=== PATIENT | male | born 1940 | race Caucasian/White ===

== ENCOUNTER 2018-05-17 13:07 | Emergency (ER) | payer MEDICARE ==
[~2018-05-17] VITALS: Ht 180.3 cm; Wt 68.0 kg
[2018-05-17] MEDS ORDERED: ASPIRIN325 MG PO (15:03)
[2018-05-17] MEDS ORDERED: LIPITOR40 MG PO (15:04)
[2018-05-17] MEDS ORDERED: CITALOPRAM HBR10 MG PO (15:05)
[2018-05-17] MEDS ORDERED: DONEPEZIL HCL10 MG PO (15:05)
[2018-05-17] MEDS ORDERED: IMODIUM A-D2 M2 PO (15:07)
[2018-05-17] MEDS ORDERED: GLUCOPHAGE500 MG PO (15:11)
[2018-05-17] MEDS ORDERED: PANTOPRAZOLE SO40 MG PO (15:12)
[2018-05-17] MEDS ORDERED: PERCOCET 5-3251 EACH PO (15:13)
[2018-05-17] MEDS ORDERED: SEROQUEL50 MG PO ×2 (15:13→15:14)
[2018-05-17] MEDS ORDERED: SYMBICORT 16010.2 GM INH (15:15)
[2018-05-17] MEDS ORDERED: FLOMAX0.4 MG PO (15:15)
[2018-05-17] MEDS ORDERED: ULTRAM50 MG PO (15:15)
[2018-05-17] MEDS ORDERED: TRAZODONE HCL50 MG PO (15:16)
[2018-05-17] MEDS ORDERED: VENTOLIN HFA18 GM INH (15:20)
[2018-05-17] MEDS ORDERED: NEURONTIN300 MG PO (16:55)
--- NOTE | 2018-05-18 18:27 | EKG ---
[facility] [address] [facility] [place], [place] [address] Signed Sinus rhythm with premature supraventricular complexes Otherwise normal ECG No previous ECGs available Confirmed by ANKUR CASTELLON MD ([id number]) on 05/18/2018 6:27:12 PM Electronically Signed By: ANKUR CASTELLON MD 05/18/18 1827 PATIENT NAME: MADISYN SALMERON Electrocardiogram DATE OF : 36 PHYSICIAN: ANKUR CASTELLON MD REPORT #: [id number] REPORT IS CONFIDENTIAL AND NOT TO BE RELEASED WITHOUT AUTHORIZATION
== END 2018-05-17 17:55 | disposition home or self-care (01) ==
LOC: ED 13:07
DX: R10.9 Unspecified abdominal pain (principal); G89.4 Chronic pain syndrome; J44.9 Chronic obstructive pulmonary disease, unspecified; E11.9 Type 2 diabetes mellitus without complications; I50.9 Heart failure, unspecified; Z87.891 Personal history of nicotine dependence; Z79.82 Long term (current) use of aspirin; Z79.899 Other long term (current) drug therapy; Z79.84 Long term (current) use of oral hypoglycemic drugs; Z79.891 Long term (current) use of opiate analgesic
CPT/HCPCS: 71045; 74176; 80053; 81001; 83690; 83735; 83880; 84484; 85025; 85610; 93005; 93010; 94761; 96361; 96374; 96375; 99284; J1170; J2405; J7040

== ENCOUNTER 2018-08-17 12:08 | Inpatient (IN) | payer MEDICARE, OTHER ==
[~2018-08-17] VITALS: Ht 180.3 cm; Wt 71.8 kg
[~2018-08-17 12:08] MED LIST: ADULT ASPIRIN R81 MG PO; CITALOPRAM HBR10 MG PO; DONEPEZIL HCL10 MG PO; FLOMAX0.4 MG PO; GLUCOPHAGE500 MG PO; IMODIUM A-D2 M2 PO; LIPITOR40 MG PO; NEURONTIN300 MG PO; PANTOPRAZOLE SO40 MG PO; PERCOCET 5-3251 EACH PO; SEROQUEL50 MG PO; SYMBICORT 16010.2 GM INH; TRAZODONE HCL50 MG PO; ULTRAM50 MG PO; VENTOLIN HFA18 GM INH
--- OUTSIDE RECORDS SUMMARY | 2018-08-17 12:12 | XMS ---
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 Quique has no Care Guidelines for this patient. [place] VISIT COUNT (12 MO.) 2 NEGRA [facility] TOTAL 2 NOTE: Visits indicate total known visits. 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
--- NOTE | 2018-08-17 20:00 | NUR ---
PATIENT RESTING IN BED, TACHYPNEIC WITH NON-PRODUCTIVE COUGH. ASSISTED TO BEDSIDE COMDODE WITH 1PA, ABLE TO VOID SMALL AMOUNT OF URINE. PATIENT NOW RESTING IN BED AGAIN. REPORTS ABD DISCOMFORT, SCHEDULED TYLENOL GIVEN. DENIES FURTHER NEEDS. BLADDER SCAN DONE, 115 ML NOTED IN BLADDER, MD AWARE. CALL LIGHT WITHIN REACH, BED ALARM ON.
--- NOTE | 2018-08-17 21:11 | EKG ---
[facility] [address] [facility] [place] [address] Signed Atrial flutter with variable AV block with premature ventricular or aberrantly conducted complexes Abnormal ECG When compared with ECG of 17-AUG-2018 13:23, (Unconfirmed) ST no longer depressed in Inferior leads Confirmed by SARKIS BOTELLO DO ([id number]) on 08/17/2018 9:11:32 PM Electronically Signed By: SARKIS BOTELLO DO 08/17/182110 PATIENT NAME: MADISYN SALMERON JR Electrocardiogram DATE OF : 36 PHYSICIAN: SARKIS BOTELLO DO REPORT #: [id number] REPORT IS CONFIDENTIAL AND NOT TO BE RELEASED WITHOUT AUTHORIZATION
--- NOTE | 2018-08-17 21:11 | EKG ---
[facility] [address] [facility] [place], [place] [address] Signed Atrial flutter with 2:[address] abnormality Abnormal ECG When compared with ECG of 17-AUG-2018 12:11, (Unconfirmed) ST less depressed in Inferior leads Confirmed by SARKIS BOTELLO DO ([id number]) on 08/17/2018 9:11:14 PM Electronically Signed By: SARKIS BOTELLO DO 08/17/182110 PATIENT NAME: MADISYN SALMERON Electrocardiogram DATE OF : 36 PHYSICIAN: SARKIS BOTELLO DO REPORT #: [id number] REPORT IS CONFIDENTIAL AND NOT TO BE RELEASED WITHOUT AUTHORIZATION
--- NOTE | 2018-08-17 21:11 | EKG ---
[facility] [address] [facility] [place], [place] [address] Signed Atrial flutter with 2:[address] abnormality Abnormal QRS-T angle, consider primary T wave abnormality Abnormal ECG When compared with ECG of 17-AUG-2018 12:10, (Unconfirmed) No significant change was found Confirmed by SARKIS BOTELLO DO ([id number]) on 08/17/2018 9:11:12 PM Electronically Signed By: SARKIS BOTELLO DO 08/17/18 211 PATIENT NAME: MADISYN SALMERON Electrocardiogram DATE OF : 36 PHYSICIAN: SARKIS BOTELLO DO REPORT #: [id number] REPORT IS CONFIDENTIAL AND NOT TO BE RELEASED WITHOUT AUTHORIZATION
--- NOTE | 2018-08-17 22:17 | NUR ---
PATIENT RESTING IN BED WITH EYES CLOSED, BREATHING IS EVEN AND UNLABORED. CALL LIGHT WITHIN REACH, BED ALARM ON.
--- NOTE | 2018-08-17 23:29 | NUR ---
PATIENT RESTING WITH EYES CLOSED, BREATHING IS EVEN AND UNLABORED, RR IS 17, O2 SATURATION IS 95% ON 2L O2. FLACC SCORE OF 0. CALL LIGHT WITHIN REACH, BED ALARM ON.
--- NOTE | 2018-08-17 23:30 | NUR ---
PATIENT RESTING IN BED WITH EYES CLOSED, BREATHING IS EVEN AND UNALABORED. FLACC SCORE OF 0. ASSESSMENT DONE. PATIENT DENIES NEEDS AT THIS TIME. CALL LIGHT WITHIN REACH, BED ALARM ON.
--- NOTE | 2018-08-18 00:49 | NUR ---
UPDATED DR. BOTELLO REGARDING PATIENT'S LOW URINE OUTPUT. DR. BOTELLO STATES TO CONTINUE TO MONITOR URINE OUTPUT UNTIL MORNING, WILL RE-EVALUATE NEED FOR CATHETER IN AM.
--- NOTE | 2018-08-18 03:04 | NUR ---
PATIENT RESTING IN BED WITH EYES CLOSED, BREATHING IS EVEN NAD UNLABORED, RR IS 18, O2 SATURATION IS 100% ON 2L O2 VIA NC. FLACC SCORE OF 0. CALL LIGHT WITHIN REACH, BED ALARM ON.
--- NOTE | 2018-08-18 04:06 | NUR ---
REPORTS 8/10 PAIN IN ABD AND RADIATES TO FLANKS, PATIENT STATES "I THINK IT IS FROM ALL THE COUGHING I HAVE BEEN DOING." PRN OXYCODONE GIVEN. PATIENT ASSISTED TO BEDSIDE COMMODE, WAS ABLE TO VOID. NOW RESTING IN BED AGAIN, BREATHING IS TACHY, O2 SATURATION IS 95% ON 2L O2 VIA NC. RT IN TO DO BREATHING TREATMENT. PATIENT DENIES FURTHER NEEDS AT THIS TIME. CALL LIGHT WITHIN REACH, BED ALARM ON.
[2018-08-18] MEDS ORDERED: FERROUS GLUCON324 M1 PO (08:22)
--- NOTE | 2018-08-18 08:30 | NUR ---
IV SITE INTACT, NO REDNESS OR SWELLING NOTED, FLUIDS INFUSING EASILY. PT AWAKE AND ALERT APPEARS SLIGHTLY AGITATED, PT REPORTS 6/10 PAIN IN ABD/FLANK. 10MG PO OXYCODONE GIVEN. PT NOT ABLE TO EAT BREAKFAST, BUT DRANK AN ENSURE. PT ALERT AND ORIENTED X4, HOWEVER IS VERY FORGETFUL. PT UP TO BEDSIDE COMMODE, SLIGHTLY IMPULSIVE WHEN GETTING UP. PT DIRECTABLE AND POLITE. PT DENIES NAUSEA AND SOB AT THIS TIME, SPUTUM SAMPLE OBTAINED.
--- NOTE | 2018-08-18 09:48 | NUR ---
PT HEART RATE IN THE 140'S TO 170'S AT TIMES, NEW ORDERS RECEIVED, PT IS IN AFIB WITH RVR AND WAS GIVEN 5MG LOPRESSOR IVP AND THEN 25MG PO. PT IS UP TO THE BEDSIDE COMMODE ALSO AT THIS TIME. HE WAS C/O CHEST PAIN WITH THIS ELEVATED HEART RATE. ONCE HEART RATE DECREASED TO THE 100'S HIS CHEST PAIN WAS NONE.
--- NOTE | 2018-08-18 10:01 | NUR ---
PT CONTIOUES TO C/O CHEST PAIN, NEW ORDERS EKG TO BE COMPLETED, AND A NEW IV LINE STARTED ALSO AT THIS TIME. DR WILL COME AND SEE PT
--- NOTE | 2018-08-18 10:18 | NUR ---
Nurse deferred PT eval today due to pt. experiencing chest pain. Will re-attempt eval as mediacally appropriate.
--- NOTE | 2018-08-18 11:10 | NUR ---
BLADDER SCANNED PT FOR 400 ML PT NOT ABLE TO VOID, CALLED TO UPDATE, ORDER GIVEN FOR DELGADO CATH PLACEMENT.
[2018-08-18] MEDS ORDERED: COLACE100 MG PO (11:23)
--- NOTE | 2018-08-18 11:23 | NUR ---
MED REC COMPLETE
--- NOTE | 2018-08-18 11:32 | NUR ---
16FR DELGADO PLACED USING STERILE TECHNIQUE, PT TOLERATED WELL, SECURED. OBTAINED 400ML DARK YELLOW URINE. PT STATES HE IS COMFORTABLE. DAUGHTER HAS ARRIVED AND IS SITTING WITH PT.
--- NOTE | 2018-08-18 13:01 | NUR ---
PT IV DOCUMENTED IN THE RT FOOT IS IN THE LEFT HAND.
--- NOTE | 2018-08-18 14:50 | NUR ---
PT BACK TO BED FROM COMMODE. PT HAS DIFFICULTY REMEMBERING HIS DELGADO CATH, AND WHAT IT IS. PT IS IMPULSIVE WITH MOVEMENTS, HOWEVER IS POLITE AND COOPERATIVE.
--- NOTE | 2018-08-18 15:51 | EKG ---
[facility] [address] [facility] [place] [address] Signed Atrial fibrillation with rapid ventricular response Abnormal QRS-T angle, consider primary T wave abnormality Abnormal ECG When compared with ECG of 17-AUG-2018 14:18, Atrial fibrillation has replaced Atrial flutter Non-specific change in ST segment in Inferior leads Confirmed by SARKIS BOTELLO DO ([id number]) on 08/18/2018 3:51:37 PM Electronically Signed By: SARKIS BOTELLO DO 08/18/18 1551 PATIENT NAME: MADISYN SALMERON Electrocardiogram DATE OF : 36 PHYSICIAN: SARKIS BOTELLO DO REPORT #: [id number] REPORT IS CONFIDENTIAL AND NOT TO BE RELEASED WITHOUT AUTHORIZATION
--- NOTE | 2018-08-18 17:15 | NUR ---
FULL REPORT GIVEN BEDSIDE TO LISA WEAVER IN ROOM 121.
--- NOTE | 2018-08-18 17:19 | NUR ---
CALLED PT'S DAUGHTER TO UPDATE ABOUT PT MOVING TO MED-SURG ROOM 121.
--- NOTE | 2018-08-18 18:01 | NUR ---
PT ARRIVED ON THE UNIT IN BED FROM CCU. PT IS ANXIOUS, HARD OF HEARING, AND BLIND IN ONE EYE, POOR SIGHT IN OTHER EYE. PT IS FORGETFUL, OFTEN REPEATS HIMSELF. PT USES O2, CHRONIC AT 1.5L. DELGADO CATH IN PLACE. PT USES BSC. PT DISLIKES ANY MOISTURE ON SKIN, DOES NOT LIKE TO USE WIPES. PT LIKES TO WIPE HIMSELF. PT ON TELE, TACHY IN 90-115.
--- NOTE | 2018-08-18 20:00 | NUR ---
PATIENT RESTING PEACEFULLY ON 1.5L/NC IN BED WITH HEAD OF BED ABOUT 30 DEGREES. EYES CLOSED RESPIRATIONS EVEN AND REGULAR AND PATIENT APPEARS IN NO DISTRESS.
--- NOTE | 2018-08-18 22:30 | NUR ---
PATIENT STILL RESTING QUIETLY IN BED. RESPIRATIONS EVEN AND REGULAR AT A RATE OF 18. EYES CLOSED AND APPEARS TO BE RESTING COMFORTABLLY.
--- NOTE | 2018-08-18 23:20 | NUR ---
APPROACHED BY CHARGE NURSE PATIENT HAS AWOKEN AND IS VERY ANXIOUS, HR JUMPINGING INTO THE 160'S AND O2 HAD TO BE TURNED UP TO 6L/NC TO GET SATS UP FROM 88%, BUT PATIENT HAD PULLED HIS O2 OFF. PATIENT EXTREMELY ANXIOUS. PM MEDS HAVE BEEN GIVEN. WAS CALLED AND AN ORDER FOR 1MG IV ATIVAN WAS GIVEN. THIS CALMED PATIENT DOWN RIGHT AWAY. PATIENT'S HEART RATE AND BREATHING CAME BACK DWN INTO EXCEPTABLE PARAMETERS. IV LOPRESSOR HAD BEEN ORDER, BUT SAID TO HOLD THE DOSE SINCE THE PATIENT WAS STABLIZING, BUT TO STILL GIVE HIM HIS SEROQUEL IF HE WOKE UP. PATIENT RESTING QUEITLY NOW. SATS 95-96% ON 4L/NC.
--- NOTE | 2018-08-19 00:05 | NUR ---
PATIENT CONTINUES TO REST QUIETLY AND CAN BE SEEN FROM THE NURSES DESK.
--- NOTE | 2018-08-19 02:24 | NUR ---
VITALS AND I&OS DONE AND CHARTED. NOTIFIED LISA MANDUJANO OF LOWER OUTPUT.
--- NOTE | 2018-08-19 02:35 | NUR ---
PER RN NAZIA I BLADDER SCANNED PT FOR 6ML. I INFORMED RN
--- NOTE | 2018-08-19 03:29 | NUR ---
WAS NOTIFIED THAT PATIENT HAS HAD LOW URINE OUTPUT AND HE INFORMED NURSING TO MONITOR AND HE WOULD LOOK AT THE ISSUE AND PATIENT'S LABS IN THE MORNING.
--- NOTE | 2018-08-19 04:25 | NUR ---
PATIENT'S SATS DROPPING TO 88% ON 4L/NC. PATIENT IS MOUTH BREATHING. PATIENT PLACED ON 4L/OXYMASK AND BACK TO 95% AT THIS TIME.
--- NOTE | 2018-08-19 06:08 | NUR ---
VITALS AND I&OS DONE AND CHARTED. NOTIFIED RN NAZIA OF LOW OUTPUT. BED WEIGHT DONE AND CHARTED. GARBAGES EMPTIED. BED SIDE TABLE AND CALL LIGHT IN REACH. PT SLEEPING WHEN I LEFT THE ROOM.
--- NOTE | 2018-08-19 08:02 | NUR ---
RECIEVED BEDSIDE REPORT FROM LISA MANDUJANO. PT SLEEPING SOUNDLY, SNORING. DID NOT WAKE TO VOICES IN ROOM. PT HAD ORDER FOR 50MG SEROQUEL ONCE FROM LAST NIGHT, NOT GIVEN DUE TO PT SLEEPING. MD AWARE. CHARTED NOT GIVEN. PER MD, RESUME NORMAL SCHEDULEING TODAY. PT ON 4L O2 VIA OXYMASK.
--- NOTE | 2018-08-19 10:34 | NUR ---
RN DEFERRED PATIENT'S PHYSICAL THERAPY EVALUATION TO THIS AFTERNOON SECONDARY TO PATIENT HAD A ROUGH NIGHT WITH O2 SATURATION, MENTAL STATUS, AND CHEST PAINS. WILL RE-ATTEMPT LATER TODAY.
--- NOTE | 2018-08-19 10:39 | NUR ---
pt is resting in bed safely with call light in reach. pt did not want anything for breakfast, but did drink some water. pt did not need anything else and appears to be very sleepy, nurse aware.
--- NOTE | 2018-08-19 11:10 | NUR ---
PT SLEEPING SOUNDLY ALL MORNING. WILL WAKE FOR CARES, COOPERATIVE, NO NOTED ANXIETY. CHANGED OXYGEN TO NASAL CANULA.
--- NOTE | 2018-08-19 12:53 | NUR ---
NO IV IN RIGHT FOOT, IV IN LEFT AC AND LEFT FOREARM.
--- NOTE | 2018-08-19 12:59 | NUR ---
PT'S DAUGHTER CALLED REQUESTING UPDATE. GAVE UPDATE ON OVERNIGHT EVENTS. SHE HAS QUESTIONS ABOUT HIS HEART RATE AND CHEST PAINS THAT HAS HAPPENED PRIOR TO THIS ILLNESS. RN ANSWERED WHAT I COULD AND DIRECTED HER TO SPEAK WITH HIS PCP OR THE HOSPITALIST WHEN SHE IS AT THE HOSPITAL. DAUGHTER IS NOT FEELING WELL SO IS NOT GOING TO VISIT TODAY.
--- NOTE | 2018-08-19 13:55 | NUR ---
REPORT RECEIVED FROM LISA WEAVER. 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 APPEARS TO BE TOLERATING WELL.
--- NOTE | 2018-08-19 14:40 | NUR ---
pt is resting in bed safely with call light in reach. pt asked for an ensure. pt was offered to get up and sit in the chair, but pt said his back is hurting too much for that right now.
--- NOTE | 2018-08-19 15:07 | NUR ---
ADMINSTERED SCHEDULED MEDS. HAD TO WAKE PT TO TAKE THEM. DENIES CONCERNS. STATES HE IS IN THE HOSPITAL FOR BREATHING BUT DOESN'T KNOW THE TOWN AND ASKED WHEN THE MAIL WOULD BE DELIVERED. PT BACK TO SLEEP QUICKLY.
--- NOTE | 2018-08-19 17:49 | NUR ---
PT MOVED TO CHAIR FOR DINNER. PT HAS SOME SWELLING IN HIS RIGHT WRIST, CUT OFF BAND AND WILL REPLACE. PT DENIES PAIN OR FEELING OF SWELLING IN HIS HAND OR WRIST. STATES IT FEELS NORMAL. ADMINSITERED LIPITOR.
--- NOTE | 2018-08-19 18:31 | NUR ---
PT SLEPT OFF AND ON THROUGHOUT DAY. FREQUENT COUGH, UNPRODUCTIVE. ANVIK. TELE IRREGULAR. SS INSULIN STARTED FOR BS OF 172. PT REPORTS SOME CHRONIC BACK PAIN. DELGADO DRAINING LIGHT YELLOW QS. 4LNC. LUNG SOUND COARSE.
--- NOTE | 2018-08-19 18:49 | NUR ---
PT HAS CRACKLES IN BASES. DCD IVF PER DR PICHARDO.
--- NOTE | 2018-08-19 19:06 | NUR ---
pt was assisted from chair back to bed. pt is resting safely with call light in reach and bed alarm on. pt asked for a hot pack for his lower back.
--- NOTE | 2018-08-19 20:54 | NUR ---
VITALS DONE AND CHARTED. BLOOD SUGAR WELL. NOTIFIED RN
--- NOTE | 2018-08-19 22:23 | NUR ---
I&OS DONE AND CHARTED. NOTIFIED LISA MANDUJANO
--- NOTE | 2018-08-19 22:55 | NUR ---
INFORMED ABOUT PATIENT'S LOW URINE OUTPUT PER RN NAZIA REQUEST. NO NEW ORDERS.
--- NOTE | 2018-08-19 23:40 | NUR ---
NOTIFIED BY LISA ANDINO, OF LOW URINARY OUTPUT. NO NEW ORDERS, JUST CONTINUE TO MONITOR FOR NOW.
--- NOTE | 2018-08-20 00:17 | NUR ---
PATIENT AWAKE AND WANTED TO SIT UP. PATIENT UP IN RECLINER WITH CHAIR ALARM. PATIENT IS WHEEZING MORE AND SATS DROPPED TO 88% ON THE NC SO SWITCHED TO 4L/OXYMASK AND RT CALLED TO COME GIVE A PRN NEB.
--- NOTE | 2018-08-20 00:52 | NUR ---
PATIENT HAS HAD HIS BREATHING TREATMENT AND IS RESTING QUIETLY IN THE RECLINER NOW. WHEEZING HAS RESOLVED. SATS 97% ON 4L/OXYMASK.
--- NOTE | 2018-08-20 02:34 | NUR ---
PATIENT CONTINUES TO SIT IN THE RECLINER AND IS GETTING HUNGRY. PATIENT DRANK AN INSURE AND IS NOW EATING A TURKEY SANDWHICH. SATS 99% ON 4L/NC.
--- NOTE | 2018-08-20 02:35 | NUR ---
GAVE PT A TURKEY SAND BOX PER HIS REQUEST AND OK FROM HIS RN NAZIA. FRESH WATER GIVEN. CALL LIGHT AND BEDSIDE TABLE IN REACH.
--- NOTE | 2018-08-20 06:43 | NUR ---
VITALS AND I&OS DONE AND CHARTED. GARBAGES EMPTIED. BEDSIDE TABLE AND CALL LIGHT IN REACH. FRESH WATER GIVEN.
--- NOTE | 2018-08-20 07:08 | NUR ---
RECIEVED BEDSIDE REPORT FROM LISA MANDUJANO. PT SLEEPING SOUNDLY, TALKING INCOHERANTLY IN HIS SLEEP. O2 AT 4L VIA OXYMASK. PT APPEARS COMFORTABLE IN BED AT THIS TIME.
--- NOTE | 2018-08-20 07:54 | NUR ---
PATIENT HAD A PRETTY GOOD NIGHT EXCEPT FOR NEEDING A BREATHING TREATMENT IN THE MIDDLE OF THE NIGHT WHEN HE GOT MORE WHEEZY AND THEN AGAIN AFTER 6 AM PATIENT BECAME VERY ANXIOUS SAID HE COULDN'T BREATH, BUT SATS WERE IN THE HIGH 90'S. PATIENT WAS GIVEN A BREATHING TREATMENT AND SEEMED TO BE MOVING AIR FAIRLY WELL BUT HAVING EXTREME ANXIETY. CALLED DR. ACEVEDO AND GOT AN ORDER FOR 0.5MG IV ATIVAN AND PATIENT CALLED DOWN GOT BACK IN BED, RELAXED HEART RATE DECREASED FROM THE 140'S DOWN TO THE LOW 100'S. PATIENT ALSO HAD A LARGE BOWEEL MOVEMENT. PATIENT RESTING QUIETLY WHEN AM REPORT GIVEN.
--- NOTE | 2018-08-20 08:17 | NUR ---
PATIENT RESTING IN BED, CALL LIGHT IN REACH. RT IN ROOM. NO OTHER NEEDS AT THIS TIME.
--- NOTE | 2018-08-20 09:49 | NUR ---
PATIENT RESTING IN BED, PATIENT DOES NOT AWAKE WHEN THIS ENVIRONMENTAL MARKETER SPEAKS TO PATIENT. RN IN ROOM WITH PATIENT AT THIS TIME. CALL LIGHT IN REACH. NO OTHER NEEDS.
--- NOTE | 2018-08-20 10:13 | NUR ---
PT REMAINS VERY SLEEPY. WILL WAKE TO LOUD VOICE AND TOUCH. PT SEEMS MORE DISORIENTED TODAY THAN PREVIOUSLY. PT LUNGS ARE VERY WHEEZY AND COARSE. PER NOLAN, RT, TRIAL REDUCTION IN 02 TO KEEP SATS AT MID-90S. DECREASED O2 TO 2L NASAL CANULA. GOOD URINE OUTPUT. TELEPHONE ORDER FROM DR ACEVEDO TO CLAMP DELGADO TO ASSESS NEED TO VOID. DELGADO CLAMPED AT 1020.
--- NOTE | 2018-08-20 12:32 | NUR ---
PT UP TO CHAIR WITH PHYSICAL THERAPY. PT TOLERATED WELL, CHAIR ALARM ON. PT SEEMS MORE AWAKE, DOZES OFF, BUT WAKES TO VOICE. REPORTS APPITITE IS IMPROVING. ONE-TIME DOSE OF CATCH UP MEDS GIVEN.
--- NOTE | 2018-08-20 13:44 | NUR ---
PATIENT SITTING UP IN BEDSIDE RECLINER, CALL LIGHT IN REACH, CHAIR ALARM ON. NO OTHER NEEDS AT THIS TIME. LINENS CHANGED.
--- NOTE | 2018-08-20 13:52 | NUR ---
DELGADO WAS CLAMPED FOR 3 HRS. PT HAD 150ML OUTPUT WHEN UNCLAMPED. PT DEINED FEELING THE NEED TO VOID. THERE WAS A LARGE AMOUNT OF URINE ON BEDSHEETS WHEN PT MOVED TO CHAIR. DR ACEVEDO NOTIFIED, WILL RECOMMEND FOLLOW UP WITH UROLOGY AFTER DISCHARGE AND WE WILL LEAVE DELGADO FOR NOW.
--- NOTE | 2018-08-20 14:23 | NUR ---
PT HAS BEEN UP IN CHAIR. TOLERATING WELL. DELGADO CATH LEAKING. RN WILL REASSESS. PT LAYING BACK DOWN IN BED.
--- NOTE | 2018-08-20 15:54 | NUR ---
THIS TRICHOLOGIST ASKED PATIENT IF HE WOULD LIKE TO SHOWER. PATIENT APPEARED TO BE AGITATED AND STATED THAT HE WANTS "YOU PEOPLE TO LEAVE ME ALONE, IM SICK AND DONT FEEL GOOD AND WANT TO BE LEFT ALONE". THIS TRICHOLOGIST EXPLAINED TO PATIENT THE BENEFITS OF A SHOWER AND THAT IT MAY HELP HIM FEEL BETTER, PATIENT AGITATION INCREASED AND PATIENT STATED THAT "YOU CANT FORCE ME TO TAKE A SHOWER, IM NOT TAKING ONE." PATIENT RESTING IN BED, CALL LIGHT IN REACH. RN NOTIFIED, NO OTHER NEEDS AT THIS TIME.
--- NOTE | 2018-08-20 17:24 | NUR ---
APPROCHED PT SEVERAL TIMES RE: TAKING A SHOWER. PT EMPHATICALLY DECLINED TO GET IN THE SHOWER CITING PAIN AND FATIGUE. PT WAS GIVEN PRN TYLENOL, STILL DECLINED. PT SLEEPY MOST OF SHIFT. AWARE.
--- NOTE | 2018-08-20 17:40 | NUR ---
PT APPEARS MORE LETHARGIC THIS SHIFT, SLEPT MOST OF DAY. WAKES EASILY TO VOICE AND TOUCH. PT C/O PAIN MORE,PRN TYLENOL EFFECTIVE "FOR ABOUT 5 MINUTES". NARCOTICS DC'D DUE TO DROWSINESS. PT TOLERATES WEANING O2 DOWN TO 2L VIA NC. PER MD, KEEP O2 BETWEEN 89%-92%. WET, PRODUCTIVE COUGH MORE FREQUENT. PT REPORTS IMPROVED APPITITE. EATS MOST OF EACH MEAL AND DRINKS ENSURES. PT REFUSED SHOWER AND BED BATH MULTIPLE TIMES.
--- NOTE | 2018-08-20 17:50 | NUR ---
PT REPORTED THAT HE FEELS SOB, O2 SATS DOWN TO 82. INCREASED WITH REASSURANCE. RT RODY CALLED, HE WILL COME OVER TO ASSIST.
--- NOTE | 2018-08-20 19:05 | NUR ---
RECIEVED REPORT FROM LISA WEAVER. PT SITTING UP IN BED, SLEEPING, AWAKES EASILY. CONTINUOUS PULSE OX- O2 SATURATION WNL ON 2 L NC. DELGADO DRAINING WNL. IV SALINE LOCKED. TELE #4- IRREGULAR HR. BED ALARM ON. CALL LIGHT IN REACH
--- NOTE | 2018-08-20 20:11 | NUR ---
VITALS AND BLOOD SUGAR DONE AND CHARTED. INFORMED RN OF RESULTS BEDSIDE TABLE AND CALL LIGHT IN REACH.
--- NOTE | 2018-08-20 20:37 | NUR ---
ASSESSMENT COMPLETE. SCHEDULED MEDICATIONS ADMINISTERED. PRN PAIN MEDICATION GIVEN FOR 8/10 PAIN IN ABD. PT SITTING ON EDGE OF BED. CRACKLES IN BILATERAL LOWER LOBES. DELGADO DRAINING WNL. CONTINUOUS PULSE OX WNL ON 2 L NC. TELE #4- IRREGULAR HR. IV SALINE LOCKED, FLUSHES WNL. ENSURE AND ICE WATER GIVEN PER PT REQUEST. ALERT AND ORIENTED X2, WHEN ASKED WHERE HE WAS PT STATED, "AT THE [employer]" AND WAS REORIENTED, PT WAS UNSURE OF CURRENT YEAR BUT WAS ABLE TO STATE HIS BIRTHDAY. CALL LIGHT IN REACH. BED ALARM ON.
--- NOTE | 2018-08-20 22:00 | NUR ---
I&OS DONE AND CHARTED. PT APPEARS TO BE SLEEPING
--- NOTE | 2018-08-20 23:16 | NUR ---
IN ROOM TO ASSIST PT TO LAY BACK IN BED. CONTINUOUS PULSE OX WNL ON 2 L NC. NO NEEDS AT THIS TIME. BED ALARM ON, CALL LIGHT IN REACH.
--- NOTE | 2018-08-21 00:16 | NUR ---
IN ROOM TO ADMINISTER SCHEDULED BP MEDICATION. MEDICATION ADMINISTERED. CONTINUOUS PULSE OX SATURATIONS WNL, OXYGEN TITRATED TO 1.5 L VIA NC. DELGADO CARE COMPLETE. CALL LIGHT IN REACH, BED ALARM ON.
--- NOTE | 2018-08-21 02:27 | NUR ---
IN ROOM TO CHECK ON PT. PT ASLEEP IN BED, AWAKES EASILY. CONTINUOUS PULSE OX WNL ON 1.5 L OXYGEN VIA NC. BED ALARM ON, CALL LIGHT IN REACH.
--- NOTE | 2018-08-21 03:07 | NUR ---
RESPONDED TO BED ALARM. PT SITTING UP IN BED, C.O. SOB AND COUGHING. RT CALLED FOR PRN BREATHING TX. RT LINDA IN ROOM TO ADMIN BREATHING TX. ASSESSMENT COMPLETE. O2 SATURATIONS WNL ON CONTINOUS PULSE OX- 1.5 LITERS OXYGEN VIA NC. PT ENCOURAGED TO TAKE DEEP BREATHS THROUGH HIS NOSE. PT HAS PRODUCTIVE COUGH. PT UP TO BED SIDE COMMODE WITH SBA. CALL LIGHT NEXT TO PT.
--- NOTE | 2018-08-21 03:27 | NUR ---
PT HAD BM X1, RETURNED TO BED. DELGADO DRAINING WNL. CALL LIGHT IN REACH.
--- NOTE | 2018-08-21 03:45 | NUR ---
PRN PAIN MEDICATION GIVEN TO PT FOR PAIN 7/10 IN ABD AND BACK. ASSISTED PT BACK TO BED. WARM BLANKET GIVEN TO PT. CALL LIGHT IN REACH.
--- NOTE | 2018-08-21 06:22 | NUR ---
PT SLEPT ON/OFF THROUGHOUT SHIFT. PRN PAIN MEDICATION GIVEN X2. PT TITRATED TO 1.5 L NC AND SATURATED WITHIN ORDERED LIMITS, CONTINUOUS PULSE OX. TELE #4 IRREGULAR HR. CBG 103. DELGADO DRAINING WNL. IV SALINE LOCKED. PT WOKE AROUND 0300 THIS MORNING WITH SOB AND ANXIETY, O2 SATURATIONS WNL, PRN BREATHING TX ADMINISTERED, PT ABLE TO FALL BACK ASLEEP WITH NO FURTHER NEEDS. SCHEDULED BP MEDICATIONS ADMINISTERED Q6H. PT ALERT AND ORIENTED X2, PLACE AND YEAR UNKNOWN.
--- NOTE | 2018-08-21 06:50 | NUR ---
IN ROOM TO ADMIN SCHEDULED BP MEDICATION. MED ADMINISTERED.
--- NOTE | 2018-08-21 06:51 | NUR ---
VITALS AND I&OS DONE AND CHARTED. GARBAGES EMPTIED. BEDSIDE TABLE AND CALL LIGHT IN REACH. PT NEEDS NOTHING AT THIS TIME.
--- NOTE | 2018-08-21 07:27 | NUR ---
RECIEVED BEDSIDE REPORT FROM LISA HERNANDEZ AND LISA GRANT. PT WAS RESTING IN BED, WAKES EASILY TO VOICE. PT HAD BM X2. TYLENOL GIVEN FOR BACK PAIN X2. TELE #4 SHOWS IRREGULAR AND TACHY. IV S/L AND NEEDS CHANGED TODAY. DELGADO IN PLACE, NO LEAKING NOTED OVERNIGHT.
--- NOTE | 2018-08-21 08:19 | NUR ---
PATIENT UP TO BSC AND BACK TO SITTING ON SIDE OF BED 1 PERSON ASSIST. CALL LIGHT IN REACH. NO FURTHER NEEDS AT THIS TIME.
--- NOTE | 2018-08-21 09:07 | NUR ---
PT COMPLAINS OF ABD PAIN. DIAG IMAGING IN ROOM TO DO ECHO. DAUGHTER AT BEDSIDE, UPSET DUE TO A IN THE FAMILY. PT DOES NOT SEEM TO BE UPSET ABOUT IT. PT SEEMS MORE ANXIOUS ABOUT HIS BREATHING, BUT HIS LUNGS SOUND BETTER. CONT. PULSE OX OFF UNTIL ECHO COMPLETE. ATTEMPTED TO GET PT IN SHOWER, BUT PT HAS DECLINED SO FAR. WILL CONTINUE TO ATTEMPT.
--- NOTE | 2018-08-21 09:53 | NUR ---
REPLACED CONT PULSE OX USING ALLIGATOR CLIP ON EAR. UNABLE TO MAINTAIN READING USING DISPOSIBLE METERS ON FINGER, TOE, OR FOREHEAD. PT IN WORKING WITH PT.
--- NOTE | 2018-08-21 10:05 | NUR ---
PT REQUESTS PRN BREATHING TREATMENT. CALLED RT TO PROVIDE TREATMENT. RT ELIO WILL BE DOWN IN A FEW MINTUES.
--- NOTE | 2018-08-21 10:44 | NUR ---
PT HAD EPISODE OF SEVERE COUGHING AND HYPOXIA (70S). CHANGED O2 TO OXYMASK AT 2L, MAINTAINED SAT LEVEL AT 95%. PT APPEARS COMFORTABLE IN BED AT THIS TIME. SUCTION AT BEDSIDE. PT IS VERY ANXIOUS, BUT CALMS WITH PRESENCE AND TALK. PT REPORTS COUGHING UP "JUNK".
--- NOTE | 2018-08-21 10:55 | NUR ---
PATIENT IN BED. PATIENT STARTED COUGHING HARD, NURSE TRANSITION RAISED HED OF BED. RN CAME INTO ROOM. FRESH WATER GIVEN. CALL LIGHT IN REACH. NO FURTHER NEEDS AT THIS TIME.
--- NOTE | 2018-08-21 10:59 | NUR ---
PT APPEARS MORE RELAXED, RESTING IN BED. O2 VIA OXYMASK AT 2L, MAINTAINING O2 AT 94-95%. PT IS COUGHING, BUT NOT GETTING ANYTHING UP. RN CAN HEAR "RATTLES" IN BACK OF THROAT. WILL DISCUSS ADDING AN EXPECTORANT WITH DR ACEVEDO WHEN HE COMES TO THE FLOOR.
--- NOTE | 2018-08-21 11:10 | NUR ---
PATIENT WAS ADMITTED AT HIGH RISK FOR MALNUTRITION DUE TO POOR APPETITE. HE LIVES WITH HIS DAUGHTER. HE HAS DEMENTIA. HE SEEMS TO BE EATING DINNER WELL BUT DOESN'T ALWAYS EAT BREAFKAST BUT WILL DRINK ENSURE. CURRENT DIET: 1800 ADA. BLOOD SUGARS IN CONTROL. POC GLUCOSE FROM 08/20: 146, 181, 107, 103. LANTUS D/C'D. CONTINUE TO PROVIDE ENSURE/GLUCERNA IF PATIENT DOESN'T EAT A MEAL. WILL CONTINUE TO MONITOR.
--- NOTE | 2018-08-21 11:49 | NUR ---
PT CHANGED BACK TO NASAL CANULA O2 AT 2L BY RT. PT MAINTAINING O2 SATS AT 94-95%.
--- NOTE | 2018-08-21 12:17 | NUR ---
PT WILL BE GOING TO SWING BED.
== END 2018-08-21 12:15 | disposition swing bed (61) | DRG 871 ==
LOC: ED 12:08 → CCU 17:08 → MS 08-18 17:00
PROVIDERS: ADMIT Student in an Organized Health Care Education/Training Program
DX: A40.3 Sepsis due to Streptococcus pneumoniae (principal); J18.9 Pneumonia, unspecified organism; J96.11 Chronic respiratory failure with hypoxia; F03.91 Unspecified dementia, unspecified severity, with behavioral disturbance; I48.91 Unspecified atrial fibrillation; R53.81 Other malaise; K86.9 Disease of pancreas, unspecified; N40.1 Benign prostatic hyperplasia with lower urinary tract symptoms; R33.8 Other retention of urine; N32.3 Diverticulum of bladder; N28.1 Cyst of kidney, acquired; K76.89 Other specified diseases of liver; K40.90 Unilateral inguinal hernia, without obstruction or gangrene, not specified as recurrent; J44.9 Chronic obstructive pulmonary disease, unspecified; E11.9 Type 2 diabetes mellitus without complications; Z79.4 Long term (current) use of insulin; M54.9 Dorsalgia, unspecified; Z87.891 Personal history of nicotine dependence
CPT/HCPCS: 36415; 51798; 71045; 74177; 80048; 80053; 81001; 83605; 83690; 83735; 84443; 84484; 85025; 87070; 87205; 87899; 92610; 93005; 93010; 93306; 94640; 94762; 96361; 96365; 96375; 97110; 97116; 97162; 99285; J0456; J0696; J1650; J1815; J2060; J2405; J2543; J7030; J7120; Q9967

== ENCOUNTER 2018-08-21 12:15 | Inpatient (IN) | payer MEDICARE, OTHER ==
[~2018-08-21] VITALS: Ht 180.3 cm; Wt 69.9 kg
[~2018-08-21 12:15] MED LIST changes: +COLACE100 MG PO; +FERROUS GLUCON324 M1 PO
--- NOTE | 2018-08-21 15:43 | NUR ---
MOLD LAMINATOR REPORTED THAT PT'S IV SITE WAS STILL BLEEDING AFTER GELY PRESSURE AND WRAPPING. RN ASSESSED SITE, NO LONGER BLEEDING, RN APPLIED ANOTHER LAYER OF WRAP. WILL REASSESS SHORTLY.
--- NOTE | 2018-08-21 16:15 | NUR ---
PT APPEARS MORE AWAKE AND ALERT. PT SITTING IN BED, MAINTAINING O2 SATS BETWEEN 93-94%.
--- NOTE | 2018-08-21 17:58 | NUR ---
PATIENT IN BED RESTING WITH EYES CLOSED. FRESH WATER GIVEN. CALL LIGHT IN REACH. NO FURTHER NEEDS AT THIS TIME.
--- NOTE | 2018-08-21 19:14 | NUR ---
RECEIVED REPORT FROM LISA WEAVER. PT LAYING IN BED, APPEARS TO BE SLEEPING. CONTINUOUS PULSE OX- WNL ON 2 LITERS OXYGEN VIA NC. TELE 4- SINUS RHYTHM. DELGADO DRAINING WNL. CALL LIGHT NEXT TO PT.
--- NOTE | 2018-08-21 19:21 | NUR ---
PT CHANGED TO SWING BED. ONE EPISODE OF SEVERE COUGHING THAT CAUSED GAGGING. NO EMISIS. AFIB CONVERTED TO NSR THIS MORNING. MAINTAINED NSR, HR 70'S. O2 VIA NC AT 2L, OXYMASK PRN. PT REPORTS COUGHING, BUT NOTHING COMING UP. DECREASED APITITE, BUT DRINKS ENSURES WELL. PT APPEARS MORE AWAKE. LIDOCAINE PATCH ON BACK AND PRN TYLENOL EFFECTIVE FOR PAIN CONTROL. MULTIPLE LARGE BM THIS SHIFT. DELGADO CATH IN PLACE, DRAINING QS YELLOW URINE.
--- NOTE | 2018-08-21 22:13 | NUR ---
ASSESSMENT COMPLETE. PT C.O HEADACHE, PRN PAIN MEDICATION ADMINISTERED. PT SOB WITH ANXIETY SITTING AT EDGE OF BED, RT NOTIFIED, BREATHING TX ADMINISTERED. LUNG SOUNDS DIMINISHED, COARSE. CONTINUOUS PULSE OXIMETRY WNL ON 2 L OXYGEN NC. PRODUCTIVE COUGH. TELE 4- SINUS RHYTHM. CALL LIGHT NEXT TO PT.
--- NOTE | 2018-08-21 23:31 | NUR ---
IN ROOM TO CHECK ON PT. PT APPEARS TO BE SLEEPING. UNLABORED EVEN BREATHING. CALL LIGHT NEXT TO PT.
--- NOTE | 2018-08-22 01:55 | NUR ---
IN ROOM TO CHECK ON PT. PT APPEARS TO BE SLEEPING, BREATHING EVEN AND UNLABORED. CONTINUOUS PULSE OX WNL ON 2 L NC. CALL LIGHT NEXT TO PT.
--- NOTE | 2018-08-22 02:14 | NUR ---
IN ROOM TO REPLACE TELE BATTERY. TELE 4- SINUS RHYTHM. LIDODERM PATCH REMOVED. O2 SATURATIONS WNL, 02 TITRATED TO 1.5 LITERS NASAL CANNULA.
--- NOTE | 2018-08-22 03:34 | NUR ---
IN ROOM TO CHECK ON PT. PT APPEARS TO BE SLEEPING COMFORTABLY, EYES CLOSED, UNLABORED BREATHING. CONTINUOUS PULSE OX WNL ON 1.5 L NC. CALL LIGHT NEXT TO PT.
--- NOTE | 2018-08-22 05:29 | NUR ---
PT SLEPT THROUGHOUT MOST OF SHIFT. 1 EPISODE OF SOB AND ANXIETY, PRN BREATHING TX ADMINISTERED. PRN PAIN MEDICATION ADMINISTERED X1. DELGADO DRAINING WNL. TELE 4- SINUS RHYTHM. CONTINUOUS PULSE OX WNL, TITRATED O2 TO 1.5 LITERS OXYGEN VIA NC.
--- NOTE | 2018-08-22 06:32 | NUR ---
IN ROOM TO CHECK ON PT. PT APPEARS TO BE SLEEPING, EYES CLOSED, BREATHING UNLABORED. OXYGEN SATURATIONS WNL ON 1.5 L NC. CALL LIGHT NEXT TO PT.
--- NOTE | 2018-08-22 07:30 | NUR ---
RECEIVED REPORT FROM LISA GRANT. PATIENT AWAKE. NO REQUESTS AT THIS TIME.
--- NOTE | 2018-08-22 08:58 | NUR ---
ASSESSMENT AND MEDICATIONS DUE. ASSESSMENT DONE. PATIENT STATES HE IS "BREATHING BETTER" O2 SAT 94% ON 1.5 LPM VIA NC. REPORTED PAIN OF 7/10, PRN MEDICATION GIVEN WITH MORNING MEDS (SEE MAR). CALL LIGHT WITHIN REACH. PATIENT SITTING ON SIDE OF BED EATING BREAKFAST. NO FURTHER REQUESTS.
--- NOTE | 2018-08-22 09:02 | NUR ---
MED REC COMPLETE WITH PATIENT WAS IN-PATIENT STATUS
--- NOTE | 2018-08-22 09:28 | NUR ---
PATIENT SITTING UP ON SIDE OF BED. FRESHWATER GIVEN. PT IN ROOM. CALL LIGHT IN REACH. NO FURTHER NEEDS AT THIS TIME.
--- NOTE | 2018-08-22 09:33 | NUR ---
PT UP WALKING IN [place] WITH REPORTS ANALYSIS MANAGER. AND ASPHALT COATER. PT IN GOOD MOOD AND NOT SOB TODAY. TELE 4 REMOVED.
--- NOTE | 2018-08-22 11:03 | NUR ---
ROUNDED ON PATIENT. PATIENT RESTING WITH EYES CLOSED, RESPIRATIONS 20. CALL LIGHT WITHIN REACH. CURTAIN OPEN TO NURSES STATION.
--- NOTE | 2018-08-22 11:58 | NUR ---
CALL LIGHT ON. PATIENT REQUESTED ASSISTANCE TO COMMODE. PATIENT DID NOT HAVE A BM. ASSISTED PATIENT BACK TO BED. PATIENT EATING LUNCH.
--- NOTE | 2018-08-22 12:05 | NUR ---
MEDICATION DUE. PATIENT SITTING ON BEDSIDE EATING LUNCH. MEDICATION GIVEN. CALL LIGHT WITHIN REACH. NO FURTHER REQUESTS AT THIS TIME.
--- NOTE | 2018-08-22 14:32 | NUR ---
PT SITTING ON SIDE OF BED, WHICH SEEMS TO BE COMFORTABLE TO HIM. HE WELCOMED ME IN AND SHOOK MY HAND. PT IS A LITTLE HARD OF HEARING, AND WHEN HE REALIZED WHO I WAS, SAID HE HAS BEEN PRAYING ALOT LATELY. HE FEELS A NEED TO GET HOME TO CARE FOR HIS FAMILY. PT REQUESTED PRAYER AND INVITED ME BACK. WILL FOLLOW NEEDED
--- NOTE | 2018-08-22 15:25 | NUR ---
ROUNDED ON PATIENT. PATIENT REPORTS FEELING BETTER AND REQUESTED MORE PAPER TO DRAW ON. CALL LIGHT WITHIN REACH. NO FURTHER REQUESTS.
--- NOTE | 2018-08-22 16:03 | NUR ---
CALL LIGHT ON. PATIENT REPORTED 8/10 PAIN WITH A HEADACHE. PRN MEDICATION GIVEN (SEE MAR). CALL LIGHT WITHIN REACH. NO FURTHER REQUESTS AT THIS TIME.
--- NOTE | 2018-08-22 16:36 | NUR ---
MEDICATIONS DUE. PATIENT IN BED WATCHING TV. REPORTS "I'M BEGINNING TO FEEL A LITTLE BETTER". MEDICATIONS GIVEN (SEE MAR). CALL LIGHT WITHIN REACH. NO FURTHER REQUESTS.
--- NOTE | 2018-08-22 16:45 | NUR ---
PATIENT REPORTS FEELING BETTER. SEVERAL BREATHING TREATMENTS. PRN PAIN MEDS ADMINISTERED X2. DELGADO DRAINING WNL. ON 1.5 L OXYGEN VIA NC. PATIENT USES CALL LIGHT APPROPRIATELY.
--- NOTE | 2018-08-22 19:06 | NUR ---
RECEIVED REPORT FROM LISA COHEN. PT SITTING AT EDGE OF BED, COMMUNICATES WITH STAFF. OXYGEN [address] ADA DIET, 1800 CALORIE. CALL LIGHT NEXT TO PT.
--- NOTE | 2018-08-22 21:04 | NUR ---
ASSESSMENT COMPLETE. PRN PAIN MEDICATION GIVEN FOR HEADACHE AND PAIN IN HIS CHEST THAT OCCURS WITH COUGH. LUNG SOUNDS DIMINISHED, CLEAR. 2 LITERS OXYGEN, NASAL CANNULA. PRODUCTIVE COUGH. CALL LIGHT IN REACH. PT LAYING IN BED, APPEARS TO BE RELAXED. SPO2 92%. DELGADO EMPTIED, DELGADO CARE COMPLETE.
--- NOTE | 2018-08-22 23:04 | NUR ---
IN ROOM TO CHECK ON PT. PT APPEARS TO BE SLEEPING, EYES CLOSED, UNLABORED BREATHING. [address]
--- NOTE | 2018-08-23 00:35 | NUR ---
PT SITTING AT EDGE OF BED. C.O. BACK PAIN. PT REPOSITIONED, PILLOW BEHIND BACK. WARM BLANKET GIVEN. PT APPEARS TO BE COMFORTABLE.
--- NOTE | 2018-08-23 02:37 | NUR ---
PT APPEARS TO BE SLEEPING, 2 L OXYGEN VIA NC IN PLACE. UNLABORED BREATHING. CALL LIGHT NEXT TO PT.
--- NOTE | 2018-08-23 04:34 | NUR ---
IN ROOM TO CHECK ON PT. PT AWAKE SITTING AT EDGE OF BED. PT STATED HE WAS GOING TO DRAW. NO REQUESTS AT THIS TIME. CALL LIGHT NEXT TO PT.
--- NOTE | 2018-08-23 04:53 | NUR ---
PT APPEARED TO SLEEP WELL THROUGHOUT SHIFT. 2 L OXYGEN NC, 02 SATURATIONS WNL. LUNG SOUNDS CLEAR AND DIMINISHED. ORAL ABX. DELGADO DRAINING WNL. ADA, 1800 CHARLENE DIET.
--- NOTE | 2018-08-23 05:40 | NUR ---
PT C.O. BACK PAIN. PRN PAIN MEDICATIONS ADMINISTERED FOR PAIN 05/07. PT SITTING AT BEDSIDE DRAWING.
--- NOTE | 2018-08-23 07:30 | NUR ---
REPORT RECEIVED FROM MARY GONZALEZ, PATIENT IS AWAKE AND SITTING UP IN BED WITH OXYGEN ON AT 2L PER NC.
--- NOTE | 2018-08-23 08:00 | NUR ---
RT WAS CALLED INTO THE ROOM DUE TO SOB, SCHEDULED NEB TX GIVEN EARLY TO ASSIST PATIENT OPEN HIS LUNGS UP.
--- NOTE | 2018-08-23 11:29 | NUR ---
PATIENT IN BED RESTING. FACE WASHED, BREAKFEAST WAS BROUGHT IN LATER. OT GAVE HER SHOWER, BED CHANGED, FRESH WATER GIVEN, NO OTHER NEEDS AT THIS TIME.
--- NOTE | 2018-08-23 11:34 | NUR ---
PATIENT WAS SETTING UP ON EDGE OF BED HAVING TROUBLE BREATHING.RN WAS CALLED IN , PATIENT USED BED SIDE COMODE, BACK TO BED , FRESH WATER WAS GIVEN BREAKFAST WAS BROUGHT IN.PATIENT REFUSED HIS MEAL. BACK TO BED, RESTING,NO OTHER NEEDS AT THIS TIME
--- NOTE | 2018-08-23 11:45 | NUR ---
PATIENT UP TO THE SIDE OF THE BED WORKING WITH RESPIRATORY THERAPY. PATIENT REMAINS ON 2L OF OXGEN PER NC AND HAS A PULSE OX ON. HE DENIES ANY SOB AT THIS TIME AND HAS HIS USUAL LOWER BACK PAIN WITH LIDOCAINE PATCH INTACT 3/10 PAIN.
--- NOTE | 2018-08-23 13:51 | NUR ---
PT WAS SITTING ON SIDE OF BED WHICH IS A COMFORTABLE PLACE FOR PT. HE WAS DRAWING AND GAVE ME ONE OF HIS DRAWINGS-A CROSS HE AUTOGRAPHED FOR ME. GOD BLESS HIM
--- NOTE | 2018-08-23 13:51 | NUR ---
PATIIENT RESTING IN BED WITH EYES CLOSED. FRESHWATER GIVEN. CALL LIGHT IN REACH. NO FURTHER NEEDS AT THIS TIME.
--- NOTE | 2018-08-23 14:34 | NUR ---
PO ABX GIVEN AT THIS TIME, PATIENT HAS BEEN RESTING WELL. REMAINS ON OXYGEN AT 2L PER NC WITHOUT C/O SOB AT THIS TIME RESPIRATIONS AT 22
--- NOTE | 2018-08-23 14:39 | NUR ---
ADDED MOISTURE TO PATIENTS OXYGEN AT THIS TIME
--- NOTE | 2018-08-23 19:07 | NUR ---
REPORT RECEIVED FROM DAYSHIFT RN. PT RESTING IN BED, EYES CLOSED AND RESPIRATIONS EVEN AND UNLABORED APPEARS TO BE SLEEPING COMFORTBABLY. CALL LIGHT IN REACH AND PT IN VIEW OF NURSING STATION.
--- NOTE | 2018-08-23 19:59 | NUR ---
PT ASSESSMENT COMPLETED. PT SITTING UP IN BED. CALL LIGHT IN REACH. O2 SAT 4LPNC. PT DENIES SOB OR PAIN. SPEECH CLEAR. PT LAUGHING AND JOKING WITH STAFF. NO CONCERNS OR REQUESTS VOICE.
--- NOTE | 2018-08-23 20:06 | NUR ---
VITALS DONE AND CHARTED.
--- NOTE | 2018-08-23 22:07 | NUR ---
PT RESTING ON RIGHT LATERAL SIDE, RESPIRATIONS VISABLE AND UNLABORED. EYES CLOSED AND PT APPEARS TO BE SLEEPING COMFORTABLY. PT REMAINS ON 4LPNC. CALL LIGHT AND H20 INR EACHAND PT REMAINS IN VIEW OF NURSING STATION.
--- NOTE | 2018-08-24 01:24 | NUR ---
pt resting on right lateral side, respirations even and unlabored on 4lpnc. pt appears to be sleeping comfortably. call light and h20 in reach and pt in view of nursing station.
--- NOTE | 2018-08-24 03:52 | NUR ---
PT RESTING IN BED ON RIGHT LATERAL SIDE, RESPIRATIONS EVEN ADN UNLABORED ON 4LPNC. PT APPEARS TO BE SLEEPING COMFORTABYL CALL LIGHT AND H20 IN [facility] AND PT IN VIEW OF NURSING STATION.
--- NOTE | 2018-08-24 05:31 | NUR ---
pt reports upset stomach, prn maalox administered,ctm.
--- NOTE | 2018-08-24 05:37 | NUR ---
PT APPEARED TO SLEEP COMFORTABLY MAJORITY OF SHIFT. PT REMAINS A/O X4. 4LPNC, DENIES SOB. PT HAS DELGADO CATH WHICH IS DRAINING ADEQUATE AMOUNTS OF CLEAR YELLOW URINE. PT DID REPORT SOME BACK PAIN AND UPPER ABDOMINAL DISCOMFORT. PT STATES THIS PAIN IS CHRONIC, COMES AND GOES AND FEELS THE SAME IT USUALLY DOES WAS GIVEN MAALOX FOR ABDOMINAL DISCOMFORT AND TYLENOL FOR LOWER BACK PAIN. BT'S WERE ACTIVE X4. NO ABD MASS WAS VISABLE OR PALPABLE.
--- NOTE | 2018-08-24 06:27 | NUR ---
PT RESTING SUPINE IN BED, EYES CLOSED AND RESPIRATIONS EVEN ADN UNLBAORED ON 4LPNC. PT APPEARS TO BE SLEEPING COMFORTABLY. CALL LIGHT AND H20 IN REACH AND PT IN VIEW OF NURSING STATION.
--- NOTE | 2018-08-24 07:30 | NUR ---
RECEIVED REPORT FROM PROFESSIONAL SERVICES SPECIALIST RN. PT APPEARS TO BE SLEEPIN. WAKES TO VERBAL STIMULI. 4L NC IN PLACE. NO IV ACCESS. CALL LIGHT IN REACH. DENIES NEEDS BREAKFAST ORDERED.
--- NOTE | 2018-08-24 08:00 | NUR ---
PT AWOKE WITH RESPIRATIONS OF 26 REPORTS SOB. RT CALLED FOR BREATHING TREATMENT. ALSO REPORTING BURNING SENSATION IN ABDOMEN. GLUCERNA REPORTED TO HELP. GIVEN TO PT WITH BREAKFAST.
--- NOTE | 2018-08-24 11:42 | NUR ---
PT SITTING USUAL ON SIDE OF BED, DRAWING TO PASS THE TIME. PT SHOWED ME SEVERAL TIMES PRESFlor BURROUGHS'S BUS CARD HE LEFT WHEN HE STOPPED BY TO CHECK ON PT. HE SEEMED SO IMPRESSED-SAID HE WAS GOING TO GO HOME AND FRAME HIS CARD. WILL FOLLOW NEEDED
--- NOTE | 2018-08-24 18:50 | NUR ---
PT HAD GOOD DAY. COMPLAINED OFPAIN IN MULTIPLE AREAS. LIDODERM BETWEEN SHOLDER BLADES. WORK WELL WITH PT. 4L NC SATING BETWEEN 88-92%. TACHYPNEIC. AT TIMES. SCHEDULED AND PRN NEBS. MAALOX AND TYLENOL NEEDED. DELGADO YELLOW QS URINE.
--- NOTE | 2018-08-24 19:08 | NUR ---
PATIENT CALLED TO USE THE BR. 1 PERSON ASSISTED. PATIENT USED WALKER. PATIENT BACK TO BED. CALL LIGHT WITHIN REACH. NO OTHER NEEDS AT THIS TIME.
--- NOTE | 2018-08-24 21:22 | NUR ---
IN ROOM TO ADMIN EVENING MEDS. PT AOX4, PLEASANT. PT SITTING AT BEDSIDE. PT TOLERATED PO MEDS WELL. VSS. O2 SAT 92% ON 4LNC. PT'S LS HAVE EXP. WHEEZES, UPPER AIRWAY CONGESTION. BASES DIM/CLEAR. OCASSIONAL PRODUCTIVE COUGH. PT DENIES SOB/CP. BT ACTIVE. PT C/O SENSITIVE "KNOTS" ON ABDOMEN WHERE THERE IS A MEDIUM SIZED BRUISE. PT DENIES ANY MURDOCK PAIN OR PAIN OTHERWISE, NO LIGHT HEADEDNESS OR DIZZINESS. PULSES EQUAL AND STRONG BILATERALLY. CMS INTACT. DELGADO DRAINING WNL. NO NEEDS AT THIS TIME. CALL LIGHT WITHIN REACH.
--- NOTE | 2018-08-24 22:36 | NUR ---
CHARGE NURSE ROUNDING NOTE: RESTING, EYES CLOSED, CALL LIGHT AND FLUDS AT BEDSIDE, BED ALARM OIN, F/C PATENT, NO REQUESTS
--- NOTE | 2018-08-24 23:26 | NUR ---
PT SOUND ASLEEP IN BED. NO NEEDS AT THIS TIME. CALL LIGHT WITHIN REACH.
--- NOTE | 2018-08-25 03:11 | NUR ---
PT SOUND ASLEEP. NO NEEDS AT THIS TIME. CALL LIGHT WITHIN REACH.
--- NOTE | 2018-08-25 05:29 | NUR ---
PT SLEPT THROUGHOUT ENTIRE SHIFT. AOX4, LS REMAIN DIMINISHED, EXP. WHEEZES. PT ENCOURAGED TO C/D/B. ON 3LNC. DELGADO CATHETER REMAINS IN PLACE. PT TOLERATED PO MEDS WELL. NO C/O PAIN THIS SHIFT. NO N/V. VSS. BED ALARM ON FOR SLEEP. NO C/O SOB/CP.
--- NOTE | 2018-08-25 05:34 | NUR ---
I&OS DONE AND CHARTED. PT SLEEPING WHEN I LEFT THE ROOM.
--- NOTE | 2018-08-25 07:46 | NUR ---
RECEIVED REPORT FROM MOVIE SHOT CAMERA OPERATOR RN. PT APPEARS TO BE SLEEPING. RESPIRATIONS ARE EQUAL AND NONLABORED. 3L NC IN PLACE. CALL LIGHT IN REACH.
--- NOTE | 2018-08-25 10:00 | NUR ---
PT IN WORKING WITH PATIENT. TOLERATING WELL. 3L NC SATIING AT 94%.
--- NOTE | 2018-08-25 12:24 | NUR ---
PT SHOWED ME SOME OF HIS LATEST DRAWINGS, ROUGH NIGHT, HOPES FOR BETTER DAY. GOOD VISIT, WILL FOLLOW NEEDED
--- NOTE | 2018-08-25 12:52 | NUR ---
PT REPORTINGBACK PAIN. TYLENOL GIVEN. DENIES OTHER NEEDS.
--- NOTE | 2018-08-25 14:00 | NUR ---
PATIENT WAS SLEEPING UNTIL PHYSICAL THERAPY CAME TO HAVE HIM WALK.
--- NOTE | 2018-08-25 14:42 | NUR ---
PT SITTING AT SIDE OF BED. SBA WITH FWW TO BATHROOM. DENIES FURTHER NEEDS. CALL LIGHT IN REACH.
--- NOTE | 2018-08-25 19:52 | NUR ---
HELPED PT FROM THE BATHROOM TO HIS BED WITH HIS FWW. BEDSIDE TABLE AND CALL LIGHT IN REACH. PT NEEDS NOTHING ELSE AT THIS TIME.
--- NOTE | 2018-08-25 20:00 | NUR ---
sitting edge of bed, visiting with staff, no c/o, no requests, call light and fluids at bedside, f/c patent
--- NOTE | 2018-08-25 22:14 | NUR ---
I&OS DONE AND CHARTED. BEDSIDE TABLE AND CALL LIGHT IN REACH.
--- NOTE | 2018-08-25 23:46 | NUR ---
medicated with 1 Tylenol 500mg po, c/o bilat rib pain right more than left. sitting edge of bed, moist, productive cough present
--- NOTE | 2018-08-26 01:42 | NUR ---
PATIENT RESTING QUIETLY ON HIS RIGHT SIDE ON 2 L/NC. EYES CLOSED, RESPIRATIONS EVEN AND REGULAR.
--- NOTE | 2018-08-26 02:32 | NUR ---
PATIENT STILL RESTING QUIETLY ON HIS RIGHT SIDE ON 2L/NC. RESPIRATIONS EVEN AND REGULAR. EYES CLOSED.
--- NOTE | 2018-08-26 04:43 | NUR ---
PATIENT STILL RESTING ON HIS RIGHT SIDE. EYES CLOSED. RESPIRATIONS EVEN AND REGULAR.
--- NOTE | 2018-08-26 06:13 | NUR ---
PATIENT IS NOW AWAKE SITTING UP ON THE EDGE OF THE BED LOOKING AT SOME PAPERS. PATIENT SLEPT WELL MOST OF THE NIGHT ON HIS 2L/NC, BUT HIS LUNG SOUNDS STILL SOUND VERY DEMINISHED. NO C/O PAIN THIS AM OR ANY OTHER COMPLAINTS DID ASK FOR COFFEE AND CREAM AND SWEETNER.
--- NOTE | 2018-08-26 07:30 | NUR ---
REPORT FROM NAZIA GONZALEZ. PT SITTING ON SIDE OF BED DRAWING. STATES HE SLEPT FAIRLY WELL LAST NIGHT AND HAS NO CONCERNS THIS MORNING.
--- NOTE | 2018-08-26 10:20 | NUR ---
pt is sitting up on side of bed safely with call light in reach. pt was offered a shower but said he would like to wait as PT wore him out. pt asked for a cup of coffee.
--- NOTE | 2018-08-26 13:47 | NUR ---
PT CONTINUES TO SIT ON BEDSIDE DRAWING PICTURES FOR THE STAFF. DENIES CONERNS OTHER THAN CHRONIC BACK PAIN. COUGH NOW INFREQUENT. FAMILY HAS GONE HOME. CHEERED HIM UP TO HAVE THEM VISIT.
--- NOTE | 2018-08-26 14:31 | NUR ---
pt is sitting up on side safely with call light in reach. pt asked for another cup of coffee.
--- NOTE | 2018-08-26 16:30 | NUR ---
PT CALLED FOR SNACK. SECURITIES COMPLIANCE EXAMINER CALLED DOWN DINNER ORDER. GIVEN ICE CREAM TO TIDE HIM OVER.
--- NOTE | 2018-08-26 18:22 | NUR ---
pt is sitting up on side of bed drawing, call light in reach. pt did not need anything at the moment
--- NOTE | 2018-08-26 18:24 | NUR ---
PT SAT AT BEDSIDE DRAWING ALL DAY. PT HAD FAMILY VISIT. GOOD APPETITE. LUNGS CLEAR. COUGHING LESS FREQUENTLY.
--- NOTE | 2018-08-26 20:15 | NUR ---
PATIENT HAS A 10/10 MURDOCK AND WAS GIVEN TYLENOL. CURRENTLY SITTING AT THE BEDSIDE DRAWING.
--- NOTE | 2018-08-26 22:00 | NUR ---
PATIENT IS CURRENTLY SLEEPING, EYES CLOSED, RESPIRATIONS REGULAR AND EVEN ON 3L/NC.
--- NOTE | 2018-08-26 22:12 | NUR ---
pt is sleeping in bed. call light within reach.
--- NOTE | 2018-08-26 22:54 | NUR ---
charge nurse rounding note: awake, sitting edge of bed. O2 3L NC, no c/o pain or requets. tolerating diet and fluids well. call light at hands reach. f/c patent.
--- NOTE | 2018-08-27 00:23 | NUR ---
PATIENT CONTINUES TO REST ON HIS RIGHT SIDE, ON 3L/NC, EYES CLOSED, BED RAILS UP, CALL LIGHT IN REACH. RESPIRATIONS EVEN AND REGULAR.
--- NOTE | 2018-08-27 02:30 | NUR ---
PATIENT STILL RESTING ON HIS RIGHT SIDE, RESPIRATIONS EVEN AND REGULAR EYES CLOSED, PATIENT APPEARS IN NO DISTRESS. CALL LIGHT IN REACH.
--- NOTE | 2018-08-27 04:35 | NUR ---
PATIENT STILL CONTINUES TO REST QUIETLY WITH EYES CLOSED, RESPIRATIONS EVEN AND REGULAR, CALL LIGHT IN REACH,ON 2L/NC.
--- NOTE | 2018-08-27 05:42 | NUR ---
PATIENT SLEPT WELL ALL NIGHT AFTER THE TYLENOL AT THE BEGINING OF THE SHIFT TOOK HIS MURDOCK AWAY. DELGADO IS DRAINING WELL. PATIENT IS TAKING IN GOOD PO FLUIDS AND HIS LUNGS ARE SOUNDING MUCH CLEARER EVEN THOUGH HE REMAINS ON 3L/NC.
--- NOTE | 2018-08-27 07:43 | NUR ---
PATIENT SITTING UP ON BEDSIDE. RESPIRATORY THERAPY IN ROOM. PATIENT GIVEN WARM WASH CLOTH TO USE AFTER BREATHING TREATMENT. PATIENT STATES THERE ARE NO OTHER NEEDS AT THIS TIME. CALL LIGHT IN REACH.
--- NOTE | 2018-08-27 07:58 | NUR ---
RN assumed care - pt pili arriola in place draining well, no iv site. pt c/o chronic back pain and lidocaine patch placed this am. 02 2.5L nc sob with talking. call light in reach.
--- NOTE | 2018-08-27 08:49 | NUR ---
PATIENT REFUSING TO SHOWER. PATIENT DRESSED IN CLEAN PANTS. DELGADO BAG CHANGED BY RN RON DUE TO LEAKING. NO OTHER NEEDS AT THIS TIME.
--- NOTE | 2018-08-27 09:33 | NUR ---
PATIENT SITTING UP ON BEDSIDE. DOCTOR IN ROOM. NO OTHER NEEDS AT THIS TIME.
[2018-08-27] MEDS ORDERED: METOPROLOL TART50 MG PO (10:04)
--- NOTE | 2018-08-27 10:50 | NUR ---
DELGADO BAG CHANGED DUE TO LEAKING. DELGADO LEFT INTACT AND NOT CHANGED. PT TOLERATED WELL.
--- NOTE | 2018-08-27 12:00 | NUR ---
[facility] NOTIFIED OF PT DC AND CONSULST.
== END 2018-08-27 11:25 | disposition home health service (06) | DRG 91 ==
LOC: MS 12:15
PROVIDERS: ADMIT Internal Medicine
DX: R26.81 Unsteadiness on feet (principal); J13 Pneumonia due to Streptococcus pneumoniae; F03.91 Unspecified dementia, unspecified severity, with behavioral disturbance; J44.0 Chronic obstructive pulmonary disease with (acute) lower respiratory infection; J96.11 Chronic respiratory failure with hypoxia; R53.1 Weakness; F39 Unspecified mood [affective] disorder; E11.9 Type 2 diabetes mellitus without complications; N32.0 Bladder-neck obstruction; I48.0 Paroxysmal atrial fibrillation; N40.1 Benign prostatic hyperplasia with lower urinary tract symptoms; R33.8 Other retention of urine; E78.5 Hyperlipidemia, unspecified; K21.9 Gastro-esophageal reflux disease without esophagitis; G89.29 Other chronic pain; M54.9 Dorsalgia, unspecified; K40.90 Unilateral inguinal hernia, without obstruction or gangrene, not specified as recurrent; N28.1 Cyst of kidney, acquired; K76.89 Other specified diseases of liver; R93.49 Abnormal radiologic findings on diagnostic imaging of other urinary organs; K86.9 Disease of pancreas, unspecified; Z79.84 Long term (current) use of oral hypoglycemic drugs; Z87.891 Personal history of nicotine dependence; Z90.49 Acquired absence of other specified parts of digestive tract; Z99.81 Dependence on supplemental oxygen; Z79.82 Long term (current) use of aspirin; Z79.51 Long term (current) use of inhaled steroids; Z79.899 Other long term (current) drug therapy
CPT/HCPCS: 94640; 94667; 94668; 94761; 94762; 97110; 97116; 97162; 97165; 97530; 97535; G8980; G8987; G8988; J1650

== ENCOUNTER → 2018-09-01 | Emergency (ER) | payer MEDICARE, OTHER ==
[~2018-09-01] VITALS: Ht 180.3 cm; Wt 69.9 kg
[~2018-09-01] MED LIST changes: +METOPROLOL TART50 MG PO
--- OUTSIDE RECORDS SUMMARY | 2018-09-01 15:38 | XMS ---
PreManage Notification: MADISYN SALMERON Security Monorail Operator Events No recent Security Events currently on file CRITERIA MET - Group Notification - [facility] - 2 Visits in 30 Days CARE PROVIDERS LIZZY HUTCHINSON Internal Medicine: Pulmonary Disease 08/18/2018-Current PHONE: [phone] Quique has no Care Guidelines for this patient. Care History Medical/Surgical 08/18/2018 [facility] - Patient is currently established with [facility]. If patient is seen in the ED during business hours. Please contact CHWs at [facility]. Care Recommendation: This patient has had 5 or more Emergency Department visits in the last 12 months.\T\nbsp; Patient requires education on the scope and purpose of the ED as an acute care provider not a Primary Care Provider and should not be utilized for chronic conditions.\T\nbsp; These are guidelines and the provider should exercise clinical judgment when providing care. E.D. VISIT COUNT (12 MO.) 3 [facility] TOTAL 3 NOTE: Visits indicate total known visits. ED/UCC VISIT TRACKING (12 MO.) 09/01/2018 15:33 [facility] TYPE: Emergency COMPLAINT: - BP PROBLEM/DARK STOOL 08/17/2018 12:08 [facility] [place] TYPE: Emergency COMPLAINT: - SOB 05/17/2018 13:07 [facility] [place] TYPE: Emergency COMPLAINT: - DIFFICULTY BREATHING,ABD PAIN DIAGNOSES: - skilled nursing (current) use of aspirin - Chronic obstructive pulmonary disease, unspecified - Unspecified abdominal pain - LONGTERM (CURRENT) USE OF ORAL HYPOGLYCEMIC DRUGS - Other terminal superintendent (current) drug therapy - long term care administrator (current) use of opiate analgesic - Shortness of breath - Unspecified abdominal pain - Heart failure, unspecified - Chronic pain syndrome - long term care administrator (current) use of oral hypoglycemic drugs - Personal history of nicotine dependence - Type 2 diabetes mellitus without complications INPATIENT VISIT TRACKING (12 MO.) No inpatient visits to display in this time frame [email or web address]
== END ==
LOC: ED 15:32
DX: J44.9 Chronic obstructive pulmonary disease, unspecified (principal); E11.9 Type 2 diabetes mellitus without complications; Z87.891 Personal history of nicotine dependence; Z79.899 Other long term (current) drug therapy; Z79.82 Long term (current) use of aspirin
CPT/HCPCS: 80048; 85025; 99284

== ENCOUNTER 2018-09-29 11:56 | Emergency (ER) | payer MEDICARE, OTHER ==
[~2018-09-29] VITALS: Ht 180.3 cm; Wt 70.3 kg
[~2018-09-29 11:56] MED LIST changes: +AUGMENTIN 875-1 EACH PO; +DELTASONE20 MG PO; +GUAIFENESIN-CODE5 ML PO; +ZITHROMAX250 MG PO
--- OUTSIDE RECORDS SUMMARY | 2018-09-29 12:00 | XMS ---
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 Care History Medical/Surgical 09/04/2018 [facility] - PATIENT IS CURRENTLY ON HOME HEALTH SERVICES. IF PATIENT IS SEEN IN THE ED PLEASE CONTACT HOME HEALTH PELT INSPECTOR RN, AND OR HOME HEALTH OFFICE DURING WORKING HOURS. - [phone]. IF NOT ABLE TO CONTACT AT THE NUMBER LISTED. PLEASE CALL [phone] AND REQUEST FOR THE PELT INSPECTOR RN FOR HOME HEALTH. 08/18/2018 [facility] - Patient is currently established with [facility]. If patient is seen in the ED during business hours. Please contact CHWs at [facility]. Care Recommendation: This patient has had [...] providing care. E.D. VISIT COUNT (12 MO.) 5 [facility] TOTAL 5 NOTE: Visits indicate total known visits. ED/UCC VISIT TRACKING (12 MO.) 09/29/2018 11:56 [facility] [place] TYPE: Emergency COMPLAINT: - MEDICATION CHANGE REQUEST 09/13/2018 11:37 [facility] [place] TYPE: Emergency COMPLAINT: - PNEUMONIA DIAGNOSES: - care home (current) use of aspirin - Shortness of breath - Chronic obstructive pulmonary disease, unspecified - Other fdc (current) drug therapy - Type 2 diabetes mellitus without complications - Heart failure, unspecified - Personal history of nicotine dependence - care home (current) use of oral hypoglycemic drugs 09/01/2018 15:33 [facility] TYPE: Emergency COMPLAINT: - BP PROBLEM/DARK STOOL DIAGNOSES: - Other terminal supervisor (current) drug therapy - Personal history of nicotine dependence - terminal make up operator (current) use of aspirin - Nonspecific low blood-pressure reading - Chronic obstructive pulmonary disease, unspecified - Type 2 diabetes mellitus without complications 08/17/2018 12:08 [facility] TYPE: Emergency COMPLAINT: - SOB 05/17/2018 13:07 [facility] TYPE: Emergency COMPLAINT: - DIFFICULTY BREATHING,ABD PAIN DIAGNOSES: - terminal make up operator (current) use of aspirin - Chronic obstructive pulmonary disease, unspecified - Unspecified abdominal pain - SKILLED NURSING (CURRENT) USE OF ORAL HYPOGLYCEMIC DRUGS - Other fdc (current) drug therapy - terminal make up operator (current) use of opiate analgesic - Shortness of breath - Unspecified abdominal pain - Heart failure, unspecified - Chronic pain syndrome - terminal make up operator (current) use of oral hypoglycemic drugs - Personal history of nicotine dependence - Type 2 diabetes mellitus without complications INPATIENT VISIT TRACKING (12 MO.) 08/21/2018 12:[address] [facility] TYPE: Medical Surgical COMPLAINT: - DECONDITIONING DIAGNOSES: - Unspecified mood [affective] disorder - Paroxysmal atrial fibrillation - Hyperlipidemia, unspecified - Chronic obstructive pulmonary disease with acute lower respiratory infection - Disease of pancreas, unspecified - Dependence on supplemental oxygen - care home (current) use of inhaled steroids - Dorsalgia, unspecified - Other retention of urine - Weakness - care home (current) use of aspirin - Abnormal radiologic findings on diagnostic imaging of other urinary organs - Chronic respiratory failure with hypoxia - Other chronic pain - Gastro-esophageal reflux disease without esophagitis - Acquired absence of other specified parts of digestive tract - Other terminal supervisor (current) drug therapy - Bladder-neck obstruction - Benign prostatic hyperplasia with lower urinary tract symptoms - Other specified diseases of liver - Unsteadiness on feet - Unspecified dementia with behavioral disturbance - Cyst of kidney, acquired - Pneumonia due to Streptococcus pneumoniae - Unilateral inguinal hernia, without obstruction or gangrene, not specified as recurrent - care home (current) use of oral hypoglycemic drugs - Personal history of nicotine dependence - Type 2 diabetes mellitus without complications 08/17/2018 17:08 [facility] TYPE: Medical Surgical COMPLAINT: - PNEUMONIA DIAGNOSES: - Other specified diseases of liver - Unspecified dementia with behavioral disturbance - Chronic respiratory failure with hypoxia - Personal history of nicotine dependence - Dorsalgia, unspecified - Diverticulum of bladder - Chronic obstructive pulmonary disease, unspecified - terminal make up operator (current) use of insulin - Pneumonia, unspecified organism - Disease of pancreas, unspecified - Unilateral inguinal hernia, without obstruction or gangrene, not specified as recurrent - Type 2 diabetes mellitus without complications - Unspecified atrial fibrillation - Cyst of kidney, acquired - Other retention of urine - Other malaise - Sepsis due to Streptococcus pneumoniae - Benign prostatic hyperplasia with lower urinary tract symptoms [email or web address]
[2018-09-29] MEDS ORDERED: METOPROLOL TART50 MG PO (13:59)
[2018-09-29] MEDS ORDERED: METOPROLOL TART25 MG PO (14:26)
== END 2018-09-29 14:48 | disposition home or self-care (01) ==
LOC: ED 11:56
DX: R55 Syncope and collapse (principal); D64.9 Anemia, unspecified; R03.1 Nonspecific low blood-pressure reading; F03.90 Unspecified dementia, unspecified severity, without behavioral disturbance, psychotic disturbance, mood disturbance, and anxiety; J44.9 Chronic obstructive pulmonary disease, unspecified; E11.9 Type 2 diabetes mellitus without complications; I50.9 Heart failure, unspecified; Z87.891 Personal history of nicotine dependence; Z79.899 Other long term (current) drug therapy; Z79.82 Long term (current) use of aspirin
CPT/HCPCS: 36415; 80053; 84484; 85025; 94640; 99283

== ENCOUNTER 2018-11-25 10:43 | Inpatient (IN) | payer MEDICARE, OTHER ==
[~2018-11-25] VITALS: Ht 180.3 cm; Wt 70.3 kg
[~2018-11-25 10:43] MED LIST changes: +METOPROLOL TART25 MG PO
[2018-11-25] MEDS ORDERED: CELEXA20 MG PO (11:06)
[2018-11-25] MEDS ORDERED: GABAPENTIN300 MG PO (11:07)
[2018-11-25] MEDS ORDERED: LIDOCAINE PAIN1 EACH TOP (11:08)
--- NOTE | 2018-11-25 15:45 | EKG ---
[facility] [address] [place] [address] Signed Sinus bradycardia with premature atrial complexes Otherwise normal ECG When compared with ECG of 13-SEP-2018 11:41, premature atrial complexes are now present Vent. rate has decreased BY [address] elevation now present in Inferior leads T wave inversion no longer evident in Inferior leads Confirmed by ANKUR CASTELLON MD ([id number]) on 11/25/2018 3:45:38 PM Electronically Signed By: ANKUR CASTELLON MD 11/25/18 1545 PATIENT NAME: JUWANJESSIEMADISYN CHOU Electrocardiogram DATE OF : 36 PHYSICIAN: ANKUR CASTELLON MD REPORT #: [id number] REPORT IS CONFIDENTIAL AND NOT TO BE RELEASED WITHOUT AUTHORIZATION
--- NOTE | 2018-11-25 16:54 | NUR ---
PATIENT REPORT RECEIVED FROM FRANCISCA GONZALEZ FROM ER, PATIENT TX VIA 1 PERSON ASSIST FROM THE STRETCHER TO THE BED, HE IS UNSTEADY ON HIS FEET AND REQUIRES ASSISTANCE. HE IS ON OXYGEN AT 4L PER NC AND PULSE OXIMETER PLACED ON HIM AT THIS TIME. BED IN THE LOW POSITION AND RAILS UP WITH ALARM ON. PATIENT GIVEN COLORING ITEMS TO KEEP HIM OCCUPIED AND DINNER ORDER PLACED.
--- NOTE | 2018-11-25 16:58 | NUR ---
PATIENT ORIENTED TO SELF, AND DATE ONLY.
--- NOTE | 2018-11-25 18:36 | NUR ---
PATIENT ONE PERSON ASSIST UP TO THE BATHROOM TO HAVE A BM, HE CALLED APPROPRIATLY BUT REMAIN UNSTEADY ON HIS FEET AND IS CONFUSED ABOUT WHAT THINGS AROUND THE ROOM ARE FOR LIKE THE PULSE OXIMETER AND THE OXYGEN TUBING. PATIENT NEEDS TO HAVE ALARM ON HIM AT ALL TIMES AND RAILS UP
--- NOTE | 2018-11-25 20:00 | NUR ---
PATIENT RESTING QUIETLY IN BED. BED ALARM ON. PATIENT ONLY ORIENTED TO SELD NEEDS FREQUENT REORIENTATION. VISUAL AND AUDITORY HALLCINATIONS OF A TALL THORNTON HAIRED MAN WITH A BANDANA TIED OVER THE LOWER PART OF HIS FACE COMING INTO HIS ROOM AND THAT HE REAN HIM OUT CAUSE HE LOOKED LIKE TROUBLE AND HE WAS WORRIED FOR THE GIRLS. PATIENT JUST WATCHING TV NOW. GIVEN A CUP OF DECAFE COFFEE. DENIES PAIN.
--- NOTE | 2018-11-25 22:00 | NUR ---
PATIENT JUST RESTING IN BED WATCHING TV, REMAINS ON 4L/NC, AND VS ARE STABLE WITH THIS. ASSESSMENT COMPLETE AND PATIENT HAS HAD HIS PM MEDS.
--- NOTE | 2018-11-26 01:35 | NUR ---
VITALS AND I&OS DONE AND CHARTED. BEDSIDE TABLE AND CALL LIGHT GIVEN. SAND BOX GIVEN PER PT REQUEST.
--- NOTE | 2018-11-26 01:48 | NUR ---
PATIENT AT BEDSIDE EATING A SANDWHICH.
--- NOTE | 2018-11-26 02:55 | NUR ---
PATIENT RESTING QUIETLY, EYESCLOSED, SUPINE, REMAINS ON 4L/NC, VS HAVE BEEN STABLE, RESPIRATIONS EVEN AND REGULAR AT 18BPM.
--- NOTE | 2018-11-26 05:23 | NUR ---
PATIENT REMAINS PLEASANTLY CONFUSED, HAS SLEPT ON AND OFF THROUGH THE NIGHT. HAS BEEN VOIDING PER URINAL SITTING AT BEDSIDE. IV INFUSING NS AT 75MLS/HR AND WNL. PATIENT HAS DENIED PAIN ALL NIGHT. SATS 99% ON 4L/NC AND HR 68. PATIENT LAYING BACK DOWN TO WAIT FOR BREAKFAST.
--- NOTE | 2018-11-26 06:33 | NUR ---
VS TAKEN AND RECORDED, FRESH WATER IS AT BEDSIDE. PT DENIES NEEDS. BED ALARM IS ON AND CALL LIGHT IS WITHIN REACH.
--- NOTE | 2018-11-26 07:53 | NUR ---
PT IN BED, AWAKE AND ALERT TO SELF. PT CONFUSED AND UNABLE TO TELL ME WHERE HE IS AND DATE WELL SITUATION. PT VOIDING Q/S. PERSONAL SUPPLIES AND CALL LIGHT WITHIN REACH. NO NEEDS AT THIS TIME.
--- NOTE | 2018-11-26 11:30 | NUR ---
ADMIN TYLENOL 650MG PO FOR REPORTS OF 7/10 HEADACHE.
--- NOTE | 2018-11-26 13:10 | NUR ---
PT TAKING NAP IN BED, RESP EVEN AND NON LABORED. PT APPEARS COMFORTABLE AND WITHOUT NOTABLE DISTRESS. PERSONAL SUPPLIES AND CALL LIGHT WITHIN REACH OF PT.
--- NOTE | 2018-11-26 15:22 | NUR ---
PT CONTINUING TO TAKE A NAP, RESP EVEN AND NON LABORED. PT APPEARS COMFORTABLE. PERSONAL SUPPLIES AND CALL LIGHT WITHIN REACH. NO NEEDS AT THIS TIME.
--- NOTE | 2018-11-26 16:59 | NUR ---
PT PLEASANTLY CONFUSED. PT ON 4L OXYGEN. NS @75ML/HR. TYLENOL PRN HEADACHE. PT TOLERATING DIET. 1PA. BED ALARM INTACT.
--- NOTE | 2018-11-26 19:05 | NUR ---
BEDSIDE REPORT RECEIVED FROM LISA HERCULES. PT RESTING IN BED. IVF INFUSING WNL. PT RATES PAIN 6/10 IN BACK AND MURDOCK. STATES "ALWAYS UP AND DOWN". SPO2 97% ON 3L OXYGEN BY NC. CALL LIGHT IN REACH. BED ALARM ON.
--- NOTE | 2018-11-26 21:12 | NUR ---
ROUNDED CHARGE. PATIENT IS SITTING ON THE EDGE OF THE BED. PATIENTS ALARM IS ON FOR SAFETY. PATIENT DENIES ANY COMMENTS, QUESTIONS, OR CONCERNS. NO NEEDS NOTED. CALL LIGHT IN REACH.
--- NOTE | 2018-11-26 21:19 | NUR ---
PT ASSESSMENT COMPLETE. SPO2 95% ON 2L OXYGEN BY NC. EXP WHEEZE HEARD RUQ. PT SITTING UP AT SIDE OF BED. ICE WATER AND DECAF COFFEE PROVIDED. 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 CALL LIGHT IN REACH. BED ALARM ON.
--- NOTE | 2018-11-26 21:23 | NUR ---
VITALS AND I&OS DONE AND CHARTED. BEDSIDE TABLE AND CALL LIGHT IN REACH. BED ALARM ON. PT NEEDS NOTHING AT THIS TIME.
--- NOTE | 2018-11-26 22:42 | NUR ---
CHECKED ON PT. RESTING IN BED, AWAKE. SPO2 95% ON 2L OXYGEN BY NC. LIGHTS TURNED DOWN IN ROOM PER PT REQUEST. CALL LIGHT IN REACH.
--- NOTE | 2018-11-27 01:05 | NUR ---
BED ALARM DELMY REBOLLEDO FEBRUARY IN ROOM TO ASSIST PT TO STAND AT BEDSIDE FOR VOID IN URINAL. PT BACK IN BED, SPO2 WNL ON 2L OXYGEN BY NC.
--- NOTE | 2018-11-27 01:09 | NUR ---
EMPTIED PT'S URINAL AND TURNED ON BED ALARM AFTER HE GOT BACK INTO BED. PT NEEDS NOTHING MORE AT THIS TIME.
--- NOTE | 2018-11-27 03:22 | NUR ---
BED ALARM SOUNDING, PT ASSISTED TO USE URINAL AT BEDSIDE. ASSESSMENT COMPLETE. PT RATES PAIN 5/10 IN STOMACH AND HEAD, PRN PAIN MEDICATION ADMINISTERED. IVF INFUSING WNL. PT HAS CALL LIGHT IN REACH. BED ALARM ON.
--- NOTE | 2018-11-27 04:27 | NUR ---
BED ALARM SOUNDING, PT ASSISTED TO STAND AT BEDSIDE TO USE URINAL, 175 ML CLEAR YELLOW URINE VOIDED. PT BACK IN BED. BED ALARM ON. CALL LIGHT IN REACH.
--- NOTE | 2018-11-27 05:17 | NUR ---
PT ORIENTED TO PERSON AND . 1PA TO RESTROOM FOR BM THIS SHIFT, GAIT STEADY. IMPULSIVE THROUGHOUT SHIFT, BED ALARM IN PLACE. QS VOIDS IN URINAL AT BEDSIDE. LUNGS CLEAR THROUGHOUT ALL LOBES, SPO2 WNL ON CONT. PULSE OX THROUGHOUT SHIFT. OXYGEN TITRATED DOWN TO 2L BY NC. PRN TYLENOL X 2 FOR PAIN CONTROL. IVF INFUSING WNL.
--- NOTE | 2018-11-27 06:15 | NUR ---
VITALS AND I&OS DONE AND CHARTED. INFORMED LISA HERNANDEZ OF HIGH BLOOD PRESSURE. PT ASKED FOR MEDS FOR HIS HEADACHE. I INFORMED LISA HERNANDEZ. I OFFERED HIM A COLD RAG FOR THE BACK OF HIS NECK, HE ACCEPTED. EMPTIED GARBAGES AND CLEANED UP ROOM. PT NEEDS NOTHING MORE AT THIS TIME.
--- NOTE | 2018-11-27 06:22 | NUR ---
ROUNDED ON PATIENT SITTING ON SIDE OF BED, COLORING. PATIENT C/O HEADACHE A "6/10", COOL CLOTH APPLIED TO NECK BY EXPLOSIVES DETONATOR. BED ALARM ON. CALL LIGHT WITHIN REACH. POSSESSIONS AT BEDSIDE. NO MORE NEEDS AT THIS TIME.
--- NOTE | 2018-11-27 06:45 | NUR ---
NEW BAG IVF INFUSING WNL. PT RESTING IN BED. BED ALARM ON. SPO2 95% ON 2L OXYGEN BY NC.
--- NOTE | 2018-11-27 07:02 | NUR ---
RECIEVED BEDSIDE REPORT FROM LISA HERNANDEZ. PT IN BED, AWAKE, ALERT. PERSONAL SUPPLIES AND CALL LIGHT IN REACH.
--- NOTE | 2018-11-27 07:34 | NUR ---
PT IN BED, GAVE BREAKFAST ORDER TO DELMY RIVERA. PROVIDED PT WITH FRESH ICE WATER. PT DENIED OTHER NEEDS AT THIS TIME. PERSONAL SUPPLIES AND CALL LIGHT IN REACH.
--- NOTE | 2018-11-27 07:53 | NUR ---
BILL Rhoades INTO PT ROOM FOR EKG AT THIS TIME. FOR CHEST PAIN PER MD STAT
--- NOTE | 2018-11-27 07:55 | NUR ---
PT C/O RIGHT SIDED CHEST PAIN, WORSENED WITH DEEP BREATHS, DENIED SHORTNESS OF BREATH. BP 182/80, HR 90. NOTIFIED DR. CASTELLON VIA TELEPHONE, RECIEVED TORB FOR STAT 12 LEAD EKG AND TO GIVEN MORPHINE 1 MG IV X 1. RT BILL IN ROOM DOING EKG, MORPHINE 1 MG IV GIVEN NOW.
--- NOTE | 2018-11-27 08:04 | NUR ---
LEFT ROOM AFTER ASSESSING PT AND READING EKG.
--- NOTE | 2018-11-27 08:06 | NUR ---
DR. CASTELLON WAS IN TO SEE PT, BP AT THAT TIME REASSESSED, 174/81(91), PULSE 80 RADIAL. PT STILL C/O SOME RIGHT SIDED CHEST PAIN, SHARP, WORSENED WITH BREATHING AND WITH PALPATION. ECG SHOWED SINUS RHYTHM WITH SINUS ARRHYTHMIA WITH OCCASIONAL PVCs, OTHERWISE NORMAL ECG, VENT RATE [address] CASTELLON REVIEWED ECG. WILL CONTINUE TO MONITOR.
--- NOTE | 2018-11-27 08:46 | NUR ---
PT ATE 100% OF HIS BREAKFAST, IS NOW DRINKING COFFEE. REPORTS THAT PAIN TO RIGHT SIDE OF CHEST HAS IMPROVED, RATES PAIN 5/10 NOW. PERSONAL SUPPLIES AND CALL LIGHT IN REACH. BED ALARM ON.
--- NOTE | 2018-11-27 10:02 | NUR ---
PATIENT RESTING IN BED. OCUPATIONAL THERAPIST IN ROOM. VITAL SIGNS AND I&O DONE. CALL LIGHT WITHIN REACH. BED ALARM ON. NO OTHER NEEDS AT THIS TIME
--- NOTE | 2018-11-27 10:46 | NUR ---
PT IN BED, RESTING QUIETLY. PERSONAL SUPPLIES AND CALL LIGHT IN REACH.
--- NOTE | 2018-11-27 11:17 | NUR ---
PATIENT ASSESSMENT DONE TODAY, WILL FOLLOW UP WITH PATIENT AND DAUGHTER HE BECOMES MORE ORIENTED AND STRONGER TO SEE WHAT D/C NEEDS HE HAS
--- NOTE | 2018-11-27 12:39 | NUR ---
PT SITTING UP AT EDGE OF BED, BED ALARM ON, CURTAIN AND DOOR OPEN, AND PT REMINDED TO CALL FOR ASSISTANCE. PT ON 2L O2 VIA NC, OXYGEN SATURATION LEVEL 90%. PT ATE 100% OF LUNCH. PERSONAL SUPPLIES AND CALL LIGHT IN REACH. PT DENIED ANY CHEST PAIN.
--- NOTE | 2018-11-27 14:20 | NUR ---
PATIENT RESTING IN BED. VITAL SIGNS AND I&O DONE. CALL LIGHT WITHIN REACH. BED ALARM ON. NO OTHER NEEDS AT THIS TIME
--- NOTE | 2018-11-27 14:34 | NUR ---
PT RESTING IN BED, EYES OPEN, ALERT. DENIES NEEDS. BED ALARM ON. PERSONAL SUPPLIES AND CALL LIGHT IN REACH.
[2018-11-27] MEDS ORDERED: SEROQUEL50 MG PO (16:00)
--- NOTE | 2018-11-27 16:10 | NUR ---
PT'S BG 159. PT REFUSED SLIDING SCALE INSULIN, 1 UNIT THAT WAS ORDERED FOR THIS LEVEL BG.
--- NOTE | 2018-11-27 16:29 | NUR ---
PT IN BED, SLEEPING SOUNDLY, AROUSED TO VOICE AND GENTLE TOUCH TO SHOULDER. PT ALERT, ORIENTED TO SELF AND SURROUNDINGS. KNOWS THAT HE IS IN A HOSPITAL, BUT NOT AWARE OF WHICH ONE. DENIED PAIN. GAVE SCHEDULED MEDICATION. PT HAS PERSONAL SUPPLIES AND CALL LIGHT IN REACH. PT ON 2L O2 VIA NC, OXYGEN SATURATION LEVEL PER CONTINUOUS PULSE OX 95%. BED ALARM ON.
[2018-11-27] MEDS ORDERED: GLUCOPHAGE500 MG PO (17:21)
--- NOTE | 2018-11-27 17:50 | NUR ---
PT ON 2L O2 VIA NC THROUGHOUT SHIFT, MAINTAINED O2 SATS AT OR GREATER THAN 90%. PT REMAINS CONFUSED, DISORIENTED TO ALL EXCEPT SELF, DATE OF , AND SUROUNDINGS. FOLLOWS COMMANDS, BUT DOES NOT USE CALL LIGHT, SO BED ALARM IN USE THROUGHOUT SHIFT. PT UP WITH 1 PERSON STANDBY ASSIST. PT ON ADA DIET, TOLERATING WELL. C/O RIGHT SIDED CHEST PAIN, WORSENED WITH DEEP BREATHS AND WITH PALPATION, ASSESSED BY DR. CASTELLON, TRIPONIN T NEGATIVE, ECG SINUS RHYTHM WITH OCCASIONAL PVCs, RATE 70. PT DID RECIEVE MORPHINE 1 MG IV X 1 AT THE TIME OF THIS EVENT. NO FURTHER INTERVENTIONS REQUIRED. URINE OUTPUT QUANTITY SUFFICIENT, AND PT HAD A BM THIS SHIFT.
[2018-11-27] MEDS ORDERED: ARICEPT10 MG PO (17:55)
[2018-11-27] MEDS ORDERED: QUETIAPINE FUM100 MG PO (17:57)
[2018-11-27] MEDS ORDERED: CITALOPRAM HBR20 MG PO (17:57)
--- NOTE | 2018-11-27 18:13 | NUR ---
PATIENT RESTING IN BED. VITAL SIGNS AND I&O DONE. CALL LIGHT WITHIN REACH. BED ALARM ON. NO OTHER NEEDS AT THIS TIME
--- NOTE | 2018-11-27 18:34 | NUR ---
PT SITTING UP AT EDGE OF BED, ATE 100% OF DINNER. BED ALARM ON. REMINDED PT TO USE CALL LIGHT TO CALL FOR ASSIST.
--- NOTE | 2018-11-27 19:00 | NUR ---
BEDSIDE REPORT RECEIVED FROM LISA PATTERSON. PT RESTING IN BED AWAKE. SPO2 96% ON 2L OXYGEN BY NC, HR 68. NO REQUESTS AT THIS TIME. BED ALARM SET. URINAL EMPTIED.
--- NOTE | 2018-11-27 19:28 | NUR ---
CALL LIGHT ANSWERED, SBA TO RESTROOM W CANE, GAIT STEADY. DELMY FAY IN ROOM.
--- NOTE | 2018-11-27 20:02 | NUR ---
1 PA SBA TO THE BATHROOM USING CANE WITH O2 ON VIA NC. PATIENT IS BACK IN BED. RT WAS IN THE ROOM WITH PATIENT. BED ALARM ON.
--- NOTE | 2018-11-27 21:00 | NUR ---
BED ALARM SOUNDING, SBA AT BEDSIDE FOR PT TO VOID IN URINAL AND BACK TO BED. BED ALARM ON. PT INSTRUCTED TO USE CALL LIGHT BEFORE GETTING OUT OF BED, VERBALIZES UNDERSTANDING.
--- NOTE | 2018-11-27 21:29 | NUR ---
PT ASSESSMENT COMPLETE. PRN TYLENOL ADMINISTERED FOR MURDOCK, RIB PAIN. PT RESTING IN BED. LUNGS CLEAR THROUGHOUT ALL LOBES, SPO2 WNL ON CONT. PULSE OX WITH 2L OXYGEN BY NC. ORIENTED TO SELF, , LOCATION (HOSPITAL). BED ALARM ON. CALL LIGHT NEXT TO PT.
--- NOTE | 2018-11-27 22:10 | NUR ---
BED ALARM SOUNDING, PT STANDING AT SIDE OF BED USING URINAL. BACK IN BED, ALARM SET.
--- NOTE | 2018-11-27 23:53 | NUR ---
CHECKED ON PT, RESTING IN BED WITH EYES CLOSED. SPO2 WNL ON 2L OXYGEN BY NC. BED ALARM ON.
--- NOTE | 2018-11-28 02:11 | NUR ---
CHECKED ON PT, RESTING IN BED WITH EYES CLOSED. SPO2 WNL ON 2L OXYGEN BY NC. LIGHTS OFF IN ROOM.
--- NOTE | 2018-11-28 04:29 | NUR ---
CHECKED ON PT, RESTING IN BED WITH EYES CLOSED. BREATHING EQUAL AND NON-LABORED ON 2L OXYGEN BY NC. BED ALARM ON.
--- NOTE | 2018-11-28 04:58 | NUR ---
PT RESTED WELL THIS SHIFT. IMPULSIVE, OUT OF BED FOR VOIDS AT BEDSIDE, BED ALARM ON THROUGHOUT SHIFT. ORIENTED TO PERSON, , HOSPITAL. BM THIS SHIFT. SBA W CANE, GAIT STEADY. PRN TYLENOL X 1 FOR MURDOCK, AND RIGHT RIB PAIN. SPO2 WNL ON 2L OXYGEN BY NC, CONT. PULSE OX. IV SALINE LOCKED. POSSIBLE D/C HOME TODAY.
--- NOTE | 2018-11-28 06:00 | NUR ---
PT ASSESSMENT COMPLETE. PT C/O 5.5/10 ABD PAIN AND 6/10 MURDOCK "STATES FEELS LIKE ROCKS ROLLING IN HEAD, AXE SPLITTING MURDOCK". BOWEL TONES ACTIVE X 4. ABD TENDER W PALPATION, SOFT. PRN PAIN MEDICATION ADMINISTERED. BED ALARM ON. CALL LIGHT IN REACH.
--- NOTE | 2018-11-28 07:31 | NUR ---
RECIEVED BEDSIDE REPORT FROM LISA HERNANDEZ. PT AWAKE, ALERT, ORIENTED TO MONTH AND DAY, SELF, DATE OF , AND SURROUNDINGS. PT ON 2L O2 VIA NC, OXYGEN SATURATION LEVEL 92% PER CONTINUOUS PULSE OX. PERSONAL SUPPLIES AND CALL LIGHT IN REACH, BED ALARM ON.
--- NOTE | 2018-11-28 07:51 | EKG ---
[facility] [address] [place] [address] Signed Sinus rhythm with sinus arrhythmia with occasional premature ventricular complexes Otherwise normal ECG No previous ECGs available Confirmed by ANKUR CASTELLON MD ([id number]) on 11/28/2018 7:51:32 AM Electronically Signed By: ANKUR CASTELLON MD 11/28/18 0751 PATIENT NAME: MADISYN SALMERON Electrocardiogram DATE OF : 36 PHYSICIAN: ANKUR CASTELLON MD REPORT #: [id number] REPORT IS CONFIDENTIAL AND NOT TO BE RELEASED WITHOUT AUTHORIZATION
--- NOTE | 2018-11-28 08:18 | NUR ---
PT UP TO BATHROOM, VOIDED URINE IN TOILET, UNMEASURED. THEN BACK TO BED USING CANE, STANDBY ASSIST. PT NOW SITTING UP EATING BREAKFAST. PERSONAL SUPPLIES AND CALL LIGHT IN REACH, BED ALARM ON.
== END 2018-11-28 12:51 | disposition home or self-care (01) | DRG 682 ==
LOC: ED 10:43 → MS 15:46
PROVIDERS: ADMIT Internal Medicine
DX: N17.9 Acute kidney failure, unspecified (principal); G92 Toxic encephalopathy; E44.0 Moderate protein-calorie malnutrition; N39.0 Urinary tract infection, site not specified; T42.6X5A Adverse effect of other antiepileptic and sedative-hypnotic drugs, initial encounter; F03.90 Unspecified dementia, unspecified severity, without behavioral disturbance, psychotic disturbance, mood disturbance, and anxiety; R33.9 Retention of urine, unspecified; E11.9 Type 2 diabetes mellitus without complications; J44.9 Chronic obstructive pulmonary disease, unspecified; I25.10 Atherosclerotic heart disease of native coronary artery without angina pectoris; I11.0 Hypertensive heart disease with heart failure; I50.9 Heart failure, unspecified; B96.20 Unspecified Escherichia coli [E. coli] as the cause of diseases classified elsewhere; Z79.84 Long term (current) use of oral hypoglycemic drugs; Z79.82 Long term (current) use of aspirin
CPT/HCPCS: 36415; 51798; 70450; 71046; 80048; 80053; 81001; 83690; 83735; 84100; 84484; 85025; 87077; 87088; 87184; 93005; 93010; 94640; 94762; 96361; 96374; 97116; 97162; 97165; 99285-25; G8978; G8979; J0696; J2270; J7030

== ENCOUNTER 2019-01-14 16:14 | Emergency (ER) | payer MEDICARE, OTHER ==
[~2019-01-14] VITALS: Ht 180.3 cm; Wt 70.3 kg
[~2019-01-14 16:14] MED LIST changes: +ARICEPT10 MG PO; +CELEXA20 MG PO; +CITALOPRAM HBR20 MG PO; +GABAPENTIN300 MG PO; +LIDOCAINE PAIN1 EACH TOP; +QUETIAPINE FUM100 MG PO
--- OUTSIDE RECORDS SUMMARY | 2019-01-14 16:16 | XMS ---
PreManage Notification: MADISYN SALMERON Security Associate Scientist Events No recent Security Events currently on file CRITERIA MET - 6 ED Visits in 6 Months - [facility] - Has Care Guidelines CARE PROVIDERS Sarmad Fournier Internal Medicine: Pulmonary Disease 08/18/2018-Current PHONE: Unknown Cass Rodriguez Vice President Of Software Development/Media Strategist 11/30/2018-Current PHONE: [phone] Cass Rodriguez Primary Care 11/30/2018-Current PHONE: [phone] Quique has no Care Guidelines for this patient. Care History Medical/Surgical 11/15/2018 [facility] - PATIENT WAS TRANSFERRED TO [facility]. PLEASE CONTACT [facility] IF PATIENT IS SEEN IN THE ED- [phone]. - PATIENT HAS AN APT WITH PCP ON 11/26/18 @ 11:00AM. 11/01/2018 [facility] - [facility] AND THE HOSPITAL ARE NOT ABLE TO WORK WITH PATIENT. - DUE TO MULTIPLE APD REFERRALS MADE ON PATIENT- PATIENT DAUGHTER IS NO LONGER ALLOWING HELP/SERVICES FROM THE CLINIC AND [facility]. - IF PATIENT IS SEEN IN THE ED PLEASE CONTACT [facility] IF THERE IS ANY CONCERNS WITH NEGLECT AND FOLLOW UP CARE TO MEDICAL NEEDS. 09/04/2018 [facility] - PATIENT IS CURRENTLY ON HOME HEALTH SERVICES. IF PATIENT IS SEEN IN THE ED PLEASE CONTACT HOME HEALTH ABSENCE MANAGEMENT CONSULTANT RN, AND OR HOME HEALTH OFFICE DURING WORKING HOURS. - [phone]. IF NOT ABLE TO CONTACT AT THE NUMBER LISTED. PLEASE CALL AND REQUEST FOR THE ABSENCE MANAGEMENT CONSULTANT RN FOR HOME HEALTH. Andrew. VISIT COUNT (12 MO.) 7 [facility] TOTAL 7 NOTE: Visits indicate total known visits. ED/C VISIT TRACKING (12 MO.) 01/14/2019 16:14 [facility] TYPE: Emergency COMPLAINT: - ABD PAIN 11/25/2018 10:44 [facility] TYPE: Emergency COMPLAINT: - SOB/WEAKNESS 09/29/2018 11:56 [facility] TYPE: Emergency COMPLAINT: - MEDICATION REFILL DIAGNOSES: - Nonspecific low blood-pressure reading - shelter (current) use of aspirin - Heart failure, unspecified - Unspecified dementia without behavioral disturbance - Syncope and collapse - Personal history of nicotine dependence - Anemia, unspecified - Encounter for issue of repeat prescription - Chronic obstructive pulmonary disease, unspecified - Type 2 diabetes mellitus without complications - Other skilled nursing (current) drug therapy 09/13/2018 11:37 [facility] TYPE: Emergency COMPLAINT: - PNEUMONIA DIAGNOSES: - 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 driver (current) use of aspirin - Shortness of breath - Chronic obstructive pulmonary disease, unspecified - Other manager terminal (current) drug therapy - Type 2 diabetes mellitus without complications - Heart failure, unspecified - Personal history of nicotine dependence - 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 driver (current) use of oral hypoglycemic drugs 09/01/2018 15:33 [facility] TYPE: Emergency COMPLAINT: - BP PROBLEM/DARK STOOL DIAGNOSES: - Other skilled nursing (current) drug therapy - Personal history of nicotine dependence - 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 driver (current) use of aspirin - Nonspecific low blood-pressure reading - Chronic obstructive pulmonary disease, unspecified - Type 2 diabetes mellitus without complications 08/17/2018 12:08 [facility] TYPE: Emergency COMPLAINT: - SOB 05/17/2018 13:07 [facility] TYPE: Emergency COMPLAINT: - DIFFICULTY BREATHING,ABD PAIN DIAGNOSES: - shelter (current) use of aspirin - Chronic obstructive pulmonary disease, unspecified - Unspecified abdominal pain - HAZARDOUS WASTE REMOVER (CURRENT) USE OF ORAL HYPOGLYCEMIC DRUGS - Other manager terminal (current) drug therapy - shelter (current) use of opiate analgesic - Shortness of breath - Unspecified abdominal pain - Heart failure, unspecified - Chronic pain syndrome - shelter (current) use of oral hypoglycemic drugs - Personal history of nicotine dependence - Type 2 diabetes mellitus without complications INPATIENT VISIT TRACKING (12 MO.) 11/25/2018 15:[address] [facility] TYPE: Medical Surgical COMPLAINT: - METABOLIC ENCEPHALOPATHY DIAGNOSES: - Retention of urine, unspecified - Unspecified dementia without behavioral disturbance - Acute kidney failure, unspecified - Hypertensive heart disease with heart failure - Unspecified Escherichia coli [E. coli] as the cause of diseases classified elsewhere - Urinary tract infection, site not specified - Chronic obstructive pulmonary disease, unspecified - Adverse effect of other antiepileptic and sedative-hypnotic drugs, initial encounter - Heart failure, unspecified - shelter (current) use of oral hypoglycemic drugs - Type 2 diabetes mellitus without complications - Moderate protein-calorie malnutrition - Toxic encephalopathy - 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 driver (current) use of aspirin - Atherosclerotic heart disease of [place] coronary artery without angina pectoris 08/21/2018 12:15 [facility] TYPE: Medical Surgical COMPLAINT: - DECONDITIONING DIAGNOSES: - Unspecified mood [affective] disorder - Paroxysmal atrial fibrillation - Hyperlipidemia, unspecified - Chronic obstructive pulmonary disease with acute lower respiratory infection - Disease of pancreas, unspecified - Dependence on supplemental oxygen - shelter (current) use of inhaled steroids - Dorsalgia, unspecified - Other retention of urine - Weakness - shelter (current) use of aspirin - Abnormal radiologic findings on diagnostic imaging of other urinary organs - Chronic respiratory failure with hypoxia - Other chronic pain - Gastro-esophageal reflux disease without esophagitis - Acquired absence of other specified parts of digestive tract - Other manager terminal (current) drug therapy - Bladder-neck obstruction - Benign prostatic hyperplasia with lower urinary tract symptoms - Other specified diseases of liver - Unsteadiness on feet - Unspecified dementia with behavioral disturbance - Cyst of kidney, acquired - Pneumonia due to Streptococcus pneumoniae - Unilateral inguinal hernia, without obstruction or gangrene, not specified as recurrent - shelter (current) use of oral hypoglycemic drugs - [...] - Chronic obstructive pulmonary disease, unspecified - 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 driver (current) use of insulin - Pneumonia, unspecified [...] prostatic hyperplasia with lower urinary tract symptoms [email or web address]
[2019-01-14] MEDS ORDERED: CYMBALTA30 MG PO (16:27)
[2019-01-14] MEDS ORDERED: METOPROLOL TART50 MG PO (16:27)
[2019-01-14] MEDS ORDERED: FLONASE ALLERG9.9 ML NAS (16:29)
== END 2019-01-14 19:47 | disposition home or self-care (01) ==
LOC: ED 16:14
DX: R10.84 Generalized abdominal pain (principal); I50.9 Heart failure, unspecified; J44.9 Chronic obstructive pulmonary disease, unspecified; E11.9 Type 2 diabetes mellitus without complications; F03.90 Unspecified dementia, unspecified severity, without behavioral disturbance, psychotic disturbance, mood disturbance, and anxiety; Z88.8 Allergy status to other drugs, medicaments and biological substances; Z79.82 Long term (current) use of aspirin; Z79.899 Other long term (current) drug therapy; Z79.84 Long term (current) use of oral hypoglycemic drugs
CPT/HCPCS: 74177; 80053; 81001; 83690; 85025; 99284-25; J1170; Q9967

== ENCOUNTER 2019-01-23 09:19 | Observation (INO) | payer MEDICARE, OTHER ==
[~2019-01-23] VITALS: Ht 180.3 cm; Wt 66.5 kg
--- NOTE | ~2019-01-23 | EKG ---
[facility] [address] [place], [place] [address] Draft EKG completed, results pending confirmation PATIENT NAME: MADISYN SALMERON JR Electrocardiogram DATE OF : 36 PHYSICIAN: PRELIMINARY REPORT #: [id number] REPORT IS CONFIDENTIAL AND NOT TO BE RELEASED WITHOUT AUTHORIZATION
[~2019-01-23 09:19] MED LIST changes: +CYMBALTA30 MG PO; +FLONASE ALLERG9.9 ML NAS
--- OUTSIDE RECORDS SUMMARY | 2019-01-23 09:22 | XMS ---
PreManage Notification: MADISYN SALMERON Security Partition Assembler Events No recent Security Events currently on file CRITERIA MET - 6 ED Visits in 6 Months - [facility] - Has Care Guidelines - [facility] - 2 Visits in 30 Days CARE PROVIDERS Sarmad Fournier Internal Medicine: Pulmonary Disease 08/18/2018-Current PHONE: Unknown Cass Rodriguez Neonatal Doctor/Application Services Manager 11/30/2018-Current PHONE: [phone] Cass Rodriguez Primary Care 11/30/2018-Current PHONE: [phone] Quique has no Care Guidelines for this patient. Care History Medical/Surgical 11/15/2018 [facility] - PATIENT WAS TRANSFERRED TO [facility]. PLEASE CONTACT [facility] IF PATIENT IS SEEN IN THE ED- [phone]. - PATIENT HAS AN APT WITH PCP ON 11/26/18 @ 11:00AM. 11/01/2018 [facility] - [facility] AND THE HOSPITAL ARE NOT ABLE TO WORK WITH PATIENT. - DUE TO MULTIPLE APD REFERRALS MADE ON PATIENT- PATIENT DAUGHTER IS NO LONGER ALLOWING HELP/SERVICES FROM THE CLINIC AND [facility]. - IF PATIENT IS SEEN IN THE ED PLEASE CONTACT [facility] IF THERE IS ANY CONCERNS WITH NEGLECT AND FOLLOW UP CARE TO MEDICAL NEEDS. 09/04/2018 [facility] - PATIENT IS CURRENTLY ON HOME HEALTH SERVICES. IF PATIENT IS SEEN IN THE ED PLEASE CONTACT HOME HEALTH SPANISH INSTRUCTOR RN, AND OR HOME HEALTH OFFICE DURING WORKING HOURS. - [phone]. IF NOT ABLE TO CONTACT AT THE NUMBER LISTED. PLEASE CALL AND REQUEST FOR THE SPANISH INSTRUCTOR RN FOR HOME HEALTH. E.Keisha. VISIT COUNT (12 MO.) 8 [facility]. TOTAL 8 NOTE: Visits indicate total known visits. ED/UCC VISIT TRACKING (12 MO.) 01/23/2019 09:19 [facility] TYPE: Emergency COMPLAINT: - WEAKNESS 01/14/2019 16:14 [facility] TYPE: Emergency COMPLAINT: - ABD PAIN DIAGNOSES: - prison (current) use of aspirin - Type 2 diabetes mellitus without complications - superintendent marine oil terminal (current) use of oral hypoglycemic drugs - Generalized abdominal pain - Unspecified dementia without behavioral disturbance - Heart failure, unspecified - Allergy status to other drugs, medicaments and biological substances status - Other mcc (current) drug therapy - Chronic obstructive pulmonary disease, unspecified 11/25/2018 10:44 [facility] TYPE: Emergency COMPLAINT: - SOB/WEAKNESS 09/29/2018 11:56 [facility] TYPE: Emergency COMPLAINT: - MEDICATION REFILL DIAGNOSES: - Nonspecific low blood-pressure reading - prison (current) use of aspirin - Heart failure, unspecified - Unspecified dementia without behavioral disturbance - Syncope and collapse - Personal history of nicotine dependence - Anemia, unspecified - Encounter for issue of repeat prescription - Chronic obstructive pulmonary disease, unspecified - Type 2 diabetes mellitus without complications - Other mcc (current) drug therapy 09/13/2018 11:37 [facility] TYPE: Emergency COMPLAINT: - PNEUMONIA DIAGNOSES: - superintendent marine oil terminal (current) use of aspirin - Shortness of breath - Chronic obstructive pulmonary disease, unspecified - Other exterminator (current) drug therapy - Type 2 diabetes mellitus without complications - Heart failure, unspecified - Personal history of nicotine dependence - prison (current) use of oral hypoglycemic drugs 09/01/2018 15:33 [facility] TYPE: Emergency COMPLAINT: - BP PROBLEM/DARK STOOL DIAGNOSES: - Other m[facility] (current) drug therapy - Personal history of nicotine dependence - superintendent marine oil terminal (current) use of aspirin - Nonspecific low blood-pressure reading - Chronic obstructive pulmonary disease, unspecified - Type 2 diabetes mellitus without complications 08/17/2018 12:08 [facility] TYPE: Emergency COMPLAINT: - SOB 05/17/2018 13:07 [facility] TYPE: Emergency COMPLAINT: - DIFFICULTY BREATHING,ABD PAIN DIAGNOSES: - prison (current) use of aspirin - Chronic obstructive pulmonary disease, unspecified - Unspecified abdominal pain - CONTRACT IMPLEMENTATION ANALYST (CURRENT) USE OF ORAL HYPOGLYCEMIC DRUGS - Other exterminator (current) drug therapy - prison (current) use of opiate analgesic - Shortness of breath - Unspecified abdominal pain - Heart failure, unspecified - Chronic pain syndrome - prison (current) use of oral hypoglycemic drugs - Personal history of nicotine dependence - Type 2 diabetes mellitus without complications INPATIENT VISIT TRACKING (12 MO.) 11/25/2018 15:46 [facility] TYPE: Medical Surgical COMPLAINT: - METABOLIC [...] initial encounter - Heart failure, unspecified - superintendent marine oil terminal (current) use of oral hypoglycemic drugs - Type 2 diabetes mellitus without complications - Moderate protein-calorie malnutrition - Toxic encephalopathy - prison (current) use of aspirin - Atherosclerotic heart disease of [place] coronary artery without angina pectoris 08/21/2018 12:[address] [facility] TYPE: Medical Surgical COMPLAINT: - DECONDITIONING DIAGNOSES: - Unspecified mood [affective] disorder - Paroxysmal atrial fibrillation - Hyperlipidemia, unspecified - Chronic obstructive pulmonary disease with acute lower respiratory infection - Disease of pancreas, unspecified - Dependence on supplemental oxygen - prison (current) use of inhaled steroids - Dorsalgia, unspecified - Other retention of urine - Weakness - superintendent marine oil terminal (current) use of aspirin - Abnormal radiologic findings on diagnostic imaging of other urinary organs - Chronic respiratory failure with hypoxia - Other chronic pain - Gastro-esophageal reflux disease without esophagitis - Acquired absence of other specified parts of digestive tract - Other exterminator (current) drug therapy - Bladder-neck obstruction - Benign prostatic hyperplasia with lower urinary tract symptoms - Other specified diseases of liver - Unsteadiness on feet - Unspecified dementia with behavioral disturbance - Cyst of kidney, acquired - Pneumonia due to Streptococcus pneumoniae - Unilateral inguinal hernia, without obstruction or gangrene, not specified as recurrent - prison (current) use of oral hypoglycemic drugs - Personal history of nicotine dependence - Type 2 diabetes mellitus without complications 08/17/2018 17:[address] [facility] TYPE: Medical Surgical COMPLAINT: - PNEUMONIA DIAGNOSES: - Other specified diseases of liver - Unspecified dementia with behavioral disturbance - Chronic respiratory failure with hypoxia - Personal history of nicotine dependence - Dorsalgia, unspecified - Diverticulum of bladder - Chronic obstructive pulmonary disease, unspecified - prison (current) use of insulin - Pneumonia, unspecified [...] prostatic hyperplasia with lower urinary tract symptoms [email or web address]
--- NOTE | 2019-01-23 15:45 | NUR ---
PT ARRIVED FROM ED. PT TRANSFERES SELF TO BED. 4L O2 BY NC IN PLACE, 100% O2 SATURATION. ASSESSMENT DONE. PT REPORTS HE FELL "2 WEEKS AGO. MY HEAD JUST HURT SO BAD AND MY SIDE WENT NUMB AND I WENT DOWN." PT ORIENTED TO USING EQUIPMENT IN ROOM. PT ANSWERS QUESTIONS AND FOLLOWS DIRETIONS, ORIENTED TO ALL BUT YEAR. FAMILY REPORTS SLURRED SPEACH, NOTED BY THIS RN AT TIMES, SLURRED SPEACH COMES AND GOES. NO FACIAL DROUP NOTED. PT ABLE TO HOLD ARMS UP, NO DRIFT NOTED, STICK OUT TOUNG, AND SMILE. PT REPORTS 6/10 PAIN IN LOWER BACK. 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 PT DEMONSTRATES USE OF CALL LIGHT. BED RAILS UP. BED ALARM ON.
--- NOTE | 2019-01-23 16:45 | NUR ---
ORDERS RECEIVED. IV FLUIDS HUNG. BOLUS RUNNING. MEDICAITON GIVEN. STRAIGHT CATH PERFORMED BY LISA VELASQUEZ. PT USED URINAL AT 1640 VOIDING 50ML. 200ML OBTAINED FROM STRAIGHT CATH. SAMPLE SENT TO LAB PER MD ORDER. RT CALLED FOR CONSULT AND NEBULIZER TREATMENT. INCENTIVE SPIOMETER GIVEN TO PT. PT DEMONSTRATES USE REACHING 1250. MEDICATION GIVEN (SEE MAR). PT RESTING IN BED. BED RAILS UP. CALL LIGHT WITHIN REACH. BED ALARM ON.
--- NOTE | 2019-01-23 18:13 | NUR ---
PUMP ALARMING, "DISTAL OCCLUSION." PTS ARM STRAIGHTENED. INFUSION RESTARTED. PT REPORTS 7/10 PAIN IN LEFT HIP AND BACK. SEE MAR FOR MEDICATION GIVEN. DINNER ARRIVED. PT ASSISTED WITH GETTING MEAL READY. PT EATING DINNER. BED RAILS UP. BED ALARM ON. NO ADDITIONAL REQUESTS OR COMPLAINTS.
--- NOTE | 2019-01-23 18:22 | NUR ---
PT ARRIVED TODAY FROM ED FOR METABOLIC ENCEPHALOPATHY. PT ALERT AND ORIENTED TO ALL BUT YEAR. OCCATIONAL SLURRED SPEACH. 7/10 PAIN IN LOWER BACK AND LEFT HIP, PRN PAIN MEDICATION GIVEN X1. PT ON 4L O2 BY NC, CHONIC AT HOME WELL. NEBULIZER GIVEN. 1500 IV BOLUS RUNNING, IV FLUIDS TO FOLLOW. DEPENDS IN PLACE, PT USING URINAL. STRAIGHT CATH THIS SHIFT, UA SENT TO LAB. BED ALARM ON. PT USING CALL LIGHT APPROPRIATLY.
--- NOTE | 2019-01-23 18:59 | NUR ---
PUMP ALARMING, 1000ML BOLUS COMPLETE. 2ND BOLUS STARTED (SEE MAR). PT RESTING IN BED. BED RAILS UP. CALL LIGHT WITHIN REACH. BED ALARM ON.
--- NOTE | 2019-01-23 19:00 | NUR ---
CHARGE ROUNDING DONE IN ROOM. PRIMARY RN IN ROOM FOR REPORT.
--- NOTE | 2019-01-23 19:06 | NUR ---
IN ROOM FOR REPORT, PT DENIES NEEDS. CALL LIGHT IS WITHIN REACH.
--- NOTE | 2019-01-23 20:00 | EKG ---
[facility] [address] [facility] [address] [place] [address] Signed Atrial fibrillation with premature ventricular or aberrantly conducted complexes Abnormal ECG When compared with ECG of 27-NOV-2018 07:55, Atrial fibrillation has replaced Sinus rhythm Confirmed by CYNTHIA ACEVEDO MD ([id number]) on 01/23/2019 7:59:50 PM Electronically Signed By: CYNTHIA ACEVEDO MD 01/23/19 2000 PATIENT NAME: MADISYN SALMERON Electrocardiogram DATE OF : 36 PHYSICIAN: CYNTHIA ACEVEDO MD REPORT #: [id number] REPORT IS CONFIDENTIAL AND NOT TO BE RELEASED WITHOUT AUTHORIZATION
--- NOTE | 2019-01-23 20:29 | NUR ---
ACCIDENTLY CHARTED ASSESSMENT UNDER ADMISSION ASSESSMENT.
--- NOTE | 2019-01-23 20:38 | NUR ---
COMPLETED ASSESSMENT AND ADMINISTERED MEDICATIONS. BROUGHT PT FRESH COFFEE AND WATER. HE VOIDED AND DENIES FURTHER NEEDS.
--- NOTE | 2019-01-23 21:10 | NUR ---
ASSISTED PT TO STAND AT EDGE OF BED AND USE URINAL. HE IS BACK IN BED WITH ALARM ON. CALL LIGHT IS CLOSE.
--- NOTE | 2019-01-23 22:57 | NUR ---
PT IS AWAKE IN BED WATCHING TV. HE DENIES NEEDS. CALL LIGHT IS CLOSE AND BED ALARM IS ON.
--- NOTE | 2019-01-24 00:09 | NUR ---
ADMINISTERED NORCO FOR 6/10 LEFT SIDED BACK, HIP, AND KNEE PAIN. HE DENIES FURTHER NEEDS AND CALL LIGHT IS CLOSE WITH BED ALARM ON.
--- NOTE | 2019-01-24 01:30 | NUR ---
PT IS RESTING WITH EYES CLOSED, RR IS EVEN AND NONLABORED. CALL LIGHT IS CLOSE.
--- NOTE | 2019-01-24 03:12 | NUR ---
PT REPORTS PAIN IS BETTER. HE IS VOIDING QS AND HAD A LARGE INCONTINENT VOID. HE DENIES NEEDS AND CALL LIGHT IS WITHIN REACH, BED ALARM IS ON.
--- NOTE | 2019-01-24 05:10 | NUR ---
PT IS RESTING WITH EYES CLOSED, RESPIRATIONS ARE EVEN AND NONLABORED. CALL LIGHT IS CLOSE.
--- NOTE | 2019-01-24 05:43 | NUR ---
PT HAS DRLR INFUSING AT 125MLS/HR AND HAD A 1.5 ML BOLUS YESTERDAY EVENING. HE IS QS IN URINAL AND HAD 2 INCONTINENT EPISODES. PT IS ON 4 LNC CHRONIC AND AMBULATES 1PA WITH FWW. HE IS FORGETFUL AT TIME AND ONLY DISORIENTED TO DATE. NORCO WAS GIVEN FOR BACK, HIP AND KNEE PAIN ON THE LEFT. HIS SPEECH IS GARBLED OR SLURRED SOUNDING AT TIMES. HE HAS SCHEDULED AND PRN NEBS.
--- NOTE | 2019-01-24 06:29 | NUR ---
PT IS SITTING AT EDGE OF BED COLORING AND DRINKING COFFEE. HE DENIES NEEDS AT THIS TIME. CALL LIGHT IS CLOSE AND BED ALARM IS ON.
--- NOTE | 2019-01-24 07:05 | NUR ---
Rec'd bedside report. Pt. lying in bed with eyes closed. Pt. not disturbed at this time.
--- NOTE | 2019-01-24 07:45 | NUR ---
REPORT RECEIVED FROM INSURANCE EXECUTIVE RN. PT IN BED WITH EYES CLOSED. RESPIRAITONS EQUAL AND NONLABORED. 4L NC IN PLACE. D5LR AT 125ML/HR. BED ALARM IN PLACE AND VISIBLE FROM NURSING STATION. CALL LIGHT IN REACH
--- NOTE | 2019-01-24 09:00 | NUR ---
Pt. lying in bed.Medication administration completed. Pt. able to swalllow medication independently without difficulty. Pt. reported having no issues at this time. Call light within reach.
--- NOTE | 2019-01-24 10:00 | NUR ---
Pt. lying inbe . Nurse in room completing assessment. Pt. states he is in pain.HR noted at 119 BPM. RN notified.
--- NOTE | 2019-01-24 10:00 | NUR ---
ASSESSMENT DONE, APICAL PULSE OF 120. VITAL SIGNS TAKEN. BLOOD PRESSURE WNL. DR ACEVEDO NOTIFIED OF INCREASED PULSE. NEW ORDER FOR TELEMETRY TO BE PLACED.
--- NOTE | 2019-01-24 10:22 | NUR ---
HEART RATE ON TELE 120-160. DR ACEVEDO AWARE. NEW ORDERS FOR IV AND PO METOPROLOL PLACED. PT VISIBLE FROM NURSING STATION. CALL LIGHT IN PLACE.
--- NOTE | 2019-01-24 10:30 | NUR ---
Pt. sitting on side of bed drawing. Tele placed on Pt. Pt reporting he has pain on left hip. HR on tele 120-160. RN aware.
--- NOTE | 2019-01-24 10:45 | NUR ---
Pt. sitting on side of bed Iv flushed, patent, site benign. [place] and IV metoprolol administered. No adveresed reactions noticed. Call light within reach.
--- NOTE | 2019-01-24 11:45 | NUR ---
Pt. sitting on side of bed requesting to use bathroom. Pt. ambulated to bathroom with front wheel walker and 1 person assist, gait steady, slower when returning to bed related to left hip pain. Pt. able to void, missed hatin josé luis;et, urine not measured. Pt. left in bed, call light in reach.
--- NOTE | 2019-01-24 11:50 | NUR ---
IV FLUIDS DECREASED TO 75ML/HR PER ORDER.
--- NOTE | 2019-01-24 12:46 | NUR ---
NOTIFIED PT MORE CONFUSED THAN HAS BEEN THIS AM. PT VERBALIZED HIS GRANDSON IS SITTING IN BIG CHAIR IN CORNER, NO ONE IS VISITING PT IN ROOM AT THIS TIME. PT GOT OUT OF BED, WONDERING ABOUT ROOM SPILT SEVERAL DRINKS FROM BEDSIDE TABLE. STAFF IN ROOM NOW.
--- NOTE | 2019-01-24 12:50 | NUR ---
Pt. sitting on edge of bed drinking coffee. Pt. reports having pain, 08/07. Pt. reports seeing his grandson that isnt in [place] aware.
--- NOTE | 2019-01-24 12:59 | NUR ---
PATIENT SPILLED COFFEE AND HIS MILKSHAKE. AIRCRAFT CABIN CLEANER WENT IN ROOM AND GOT IT CLEANED UP WITH THE HELP OF DIETER FROM ENVIROMENTAL SERVICES. PATIENT GOT NEW SOCKS AND PANTS.
--- NOTE | 2019-01-24 13:30 | NUR ---
DAUGHTER CALLED PER REQUEST FOR UPDATE ON PT CONDITION. QUESTIONS AND CONCERNS ADRESSED.
--- NOTE | 2019-01-24 13:46 | NUR ---
TALKED WITH DAUGHTER ABOUT PT/ASSESSMENT DONE VIA PHONE WITH HER PT IS TOO CONFUSED TO GIVE APPROPRIATE ANSWERS. SHE STATES THAT IS NURMAL THING FOR HIM TO GET MORE CONFUSED AND THEN RETURN TO HIS LESS CONFUSED STATES, SHE STATES THAT IS HOW HIS DEMENTIA WORKS. SHE IS PLANNING ON HIM RETURNING HOME UPON DC.
--- NOTE | 2019-01-24 13:58 | NUR ---
PT SITTING ON SIDE OF BED, SAID HE IS GETTING THINGS ORGANIZED ON HIS TABLE SO HE CAN DRAW. PT SEEMS SOMEWHAT CONFUSED, BUT PLEASANT. EXTENDED A BLESSING, PT SHOOK MY HAND AND THANKED ME FOR COMING BY. WILL FOLLOW NEEDED
--- NOTE | 2019-01-24 14:00 | NUR ---
Pt. sitting up at edge of bed. Pt. given coffee per request. Pt. sitting on edge of ofbed drawing. No other need reported atthis time. Call light within reach.
--- NOTE | 2019-01-24 14:15 | NUR ---
Pt. lying in bed. Bladder palpated and felt firm. Bladder scan revealed 246 mls. Pt. denies discomfort with scan. Call light within reach.
--- NOTE | 2019-01-24 14:30 | NUR ---
PT WITH DECREASED OUTPUT. DR ACEVEDO NOTIFIED. ORDER TO INCREASE D5LR TO 125ML/HR. NO OTHER ORDERS. PT 1:[address]. TELE #7 WITH IRREGULAR HR AT 90. VISIBLE FROM NURSING STATION. PT COOPERATIVE WITH CARES.
--- NOTE | 2019-01-24 16:00 | NUR ---
PHIL BROCK AT BEDSIDE, PT 1:1 STATUS D/T, INCREASED MOBILITY AND CONFUSION. PT UNABLE TO USE CALL LGIHT APPROPRIATLY AND IS HAVING AUDITORY AND VISUAL HALUCINATIONS.
--- NOTE | 2019-01-24 18:24 | NUR ---
PT HAD GOOD DAY, DECREASED URINE OUTPUT. D5LR @ 125. IN RIGHT AC. PT IS NOW 1:1 D/T CONFUSION AND COMPUSION. 4L NC CHRONIC. URINAL AT BEDSIDE, PT WITH FREQUENCY AND RETENTION. TELE #[address] WITH IRREGULAR HEART RATE AT 101. NORCO FOR CHRONIC BACK PAIN. LIDOCAIN PATCH ON LEFT LOWER BACK. NEBS SCHEDULED AND PRN. DISORIENTED TO DATE. PT WITH AUDITORY AND VISUAL HALLUCINATIONS.
--- NOTE | 2019-01-24 19:00 | NUR ---
SHIFT REPORT RECEIVED. PATIENT STANDING AT EDGE OF BED. REPORTS PAIN IN LEFT LEG. PRN NORCO PROVIDED. PATIENT CONTINUES TO BE 1:1 AND REQUIRES FREQUEST REDIRECTION. ASSISTED THE PATIENT TO SITTING ON EDGE OF BED. ORANGE JUICE PROVIDED PER REQUEST. PATIENT HAVING VISUAL DISTURBANCES AND SLURRED SPEECH. STATES HE IS FRUSTERATED WITH PEOPLE TELLING HIM HE CAN'T DO THINGS ALL OF THE TIME. APPEARS UPSET WITH STAFF. ATTEMPTS TO REORIENT AND REDIRECT ARE MINIMALLY SUCESSFUL.
--- NOTE | 2019-01-24 19:30 | NUR ---
PATIENT INSISTENT TO GO FOR A WALK. PATIENT AMBULATED WITH A STEADY GAIT, BUT REQUIRES CONSTANT DIRECTIONS DUE TO CONFUSION ON USING THE WALKER AND DIFFICULTY WITH SIGHT. PATIENT WALKED ABOUT 50FT IN THE HALLWAY TOTAL. RETURNED TO HIS ROOM, ASSISTED PATIENT TO THE BATHROOM. PATIENT RETURNED TO BED AND VS DONE. SCHEDULED MEDS PROVIDED. PATIENT POSITIONED FOR COMFORT IN THE BED. HE REPORTS BEING TIRED AND IS TALKING WITH HIS DUGHTER ALESSANDRO, WHO IS NOT IN THE ROOM. UNABLE TO REORIENT PATIENT AT THIS TIME. REMAINS 1:1 FOR SAFETY.
--- NOTE | 2019-01-24 20:10 | NUR ---
RT IN ROOM FOR NEB TREATMENTS, PATIENT COMPLAINT WITH CARE.
--- NOTE | 2019-01-24 20:57 | NUR ---
PATIENT RESTING IN BED. REACHING FOR THINGS THAT ARE NOT THERE AND TALKING ABOUT DOGS BEING IN HIS ROOM. UNABLE TO REORIENT PATIENT AT THIS TIME. PATIENT'S LUNGS ARE CLEAR, DIMINISHED IN THE BASED. OCCATIONALY CONGESTED COUGH, NONPRODUCTIVE. 4L NC IN PLACE. PATIENT ORIENTED TO SELF AND . REPORTS PAIN IN LEFT HIP AND LEG. REPOSITIONED FOR COMFORT. PATIENT UNABLE TO REPORT NUMBNESS OR TINGLING. SENSATION INTACT, PULSES WNL IN ALL 4 EXTREMITIES. SKIN INTACT. ATTENDS IN PLACE.
--- NOTE | 2019-01-24 22:30 | NUR ---
PATIENT HAS BEEN UP TO THE BATHROOM SEVERAL TIMES AND HAS BECOME INCREASING DIFFICULT TO REDIRECT. PATIENT PULLED HIS IV SITE. WHILE IN THE BATHROOM THE PATIENT BECAME UNSTEADY WHILE ATTEMPTING TO PULL HIS PANTS UP. THIS RN REACHED OUT TO STEADY THE PATIENT AND THE PATIENT BECAME VIOLENT, PUSHING STAFF AND ALMOST FALLING. ABLE TO REDIRECT PATIENT SAFELY TO HIS BED. TOOLROOM KEEPER IN ROOM TO ASSIST. NOTIFIED AND NEW ORDERS INPUT BY HIM FOR SLEEP AIDE.
--- NOTE | 2019-01-24 23:12 | NUR ---
DELMY FEBRUARY IN ROOM FOR 1:1, PATIENT ATTEMPTING TO GET OUT OF BED FREQUENTLY AND REQUIRING REDIRECTION. PATIENT HAVING ONGOING HALLUCINATIONS, SOME VIOLENT IN NATURE. VICKI GONZALEZ ABLE TO ASSIST IN PLACING NEW IV SITE.
--- NOTE | 2019-01-25 00:06 | NUR ---
PATIENT REFUSING TO WEAR HIS NC OR AN OXIMASK. PATIENT STATES "I'M NOT LETTING ANYONE TELL ME WHAT TO DO IN MY OWN HOUSE". ATTEMPTS TO REORIENT THE PATIENT ARE UNSUCCESSFUL. PATIENT ATTEMPTING TO GET OUT OF BED AND STATES "I'M LEAVING". PATIENT USING PROFRANITY AND YELLING AT STAFF. VP LEGAL AFFAIRS ALBERTO IN ROOM IN ATTEMPTS TO REDIRECT PATIENT.
--- NOTE | 2019-01-25 00:41 | NUR ---
PATIENT CONTINUES TO BE 1:1 WITH PATTERN GRADER CUTTER FEBRUARY. PATIENT ALLOWED STAFF TO PUT HIS NC IN PLACE. HOWEVER HE IS REFUSING TO LAY IN BED, STANDING AT THE SIDE OR LAYING ACROSS THE FOOT OF THE BED. OFFERED TO REPOSITION PATIENT AND HE BECOMES ANGRY, STATING "NO ONE IS TELLING ME WHAT TO DO" AND YELLING AT STAFF.
--- NOTE | 2019-01-25 02:30 | NUR ---
PATIENT CONTINUES TO BE 1:1. HAS BEEN COMPLIANT WITH WEARING HIS NC SOME OF THE TIME BUT REFUSING TO LAY IN BED. HAS BEEN SITTING ON THE EDGE OF THE BED. PATIENT HAS ONGOING VISUAL AND AUDITORY HALLUCINATIONS THAT APPEAR VIOLENT IN NATURE. HOWEVER PATIENT IS ABLE TO ANSWER ORIENTATION QUESTIONS REGAURDING HIS NAME AND . UPDATE GIVEN TO DR. ACEVEDO AND NEW ORDERS RECEIVED. ORDERED MEDS GIVEN. PATIENT REDIRECTED INTO LAYING POSITION IN THE HIS BED.
--- NOTE | 2019-01-25 04:11 | NUR ---
PATIENT CONTINUES TO REQUIRE FREQUENT REDIRECTING. INDUSTRIAL GAS PRODUCTION OPERATOR FEBRUARY AT BEDSIDE. PATIENT TALKING TO PEOPLE THAT ARE NOT IN THE ROOM AND YELLING OUT FREQUENTLY. HOWEVER, PATIENT IS REMAINING IN BED LAYING DOWN AT THIS TIME.
--- NOTE | 2019-01-25 05:12 | NUR ---
PATIENT CONTINUES TO BE 1:1. PATIENT IS RESTLESS AND REQUIRES FREQUENT REDIRECTION. PATIENT YELLING AT PEOPLE THAT ARE NOT IN THE ROOM AND APPEARS TO BE HALLUCINATING. REASSURANCE PROVIDED FREQUENTLY.
--- NOTE | 2019-01-25 05:29 | NUR ---
PATIENT WAS 1:1 WITH STAFF THIS FULL SHIFT. REQUIRED FREQUENT REASSURANCE AND REDIRECTION. ORIENTED TO SELF AND ONLY. OCCATIONALLY ABLE TO BE ORIENTED TO SURROUNDINGS. PATIENT DID NOT SLEEP THIS SHIFT. HAD ONGOING AUDITORY AND VISUAL HALLUCINATIONS. 4L NC. VS STABLE. 1-2PA, UNSTEADY GAIT. LIMITED AMBULATION FOR SAFETY. FREQUENTLY UNABLE TO FOLLOW DIRECTIONS. IV FLUIDS PER ORDER. ENCOURAGE PO INTAKE. URINE OUTPUT QS. LEFT LEG/HIP PAIN. PRN NORCO AND TYLENOL.
--- NOTE | 2019-01-25 07:21 | NUR ---
PATIENT'S HR ELEVATED TO 130'S. MD NOTIFIED. PO LOPRESSOR GIVEN EARLY PER MD.
--- NOTE | 2019-01-25 07:22 | NUR ---
PATIENT'S HR 80'S. PATIENT RESTING IN BED. EYES OPEN, TALKING TO PEOPLE THAT ARE NOT IN THE ROOM. 1:1 FOR SAFETY.
--- NOTE | 2019-01-25 07:39 | NUR ---
PT APPEARS TO BE SLEEPING AT THIS TIME. RESPIRATIONS ARE EVEN. SKIN IS WARM AND DRY. WILL CONTINUE TO MONITOR PT. CALL LIGHT IS IN REACH.
--- NOTE | 2019-01-25 08:14 | NUR ---
PT IS CURRENTLY SLEEPING AT THIS TIME. TELE HAS BEEN DISCONNECTED PER MD REQUEST. RESPIRATIONS ARE EVEN. SKIN IS WARM AND DRY. CALL LIGHT IS IN REACH. WILL CONTINUE TO MONITOR PT.
--- NOTE | 2019-01-25 08:55 | NUR ---
PATIENT ASSESSMENT DONE. PATIENT IS SLEEPING SOUNDLY, ONE TO ONE STAFF IN ROOM WITH PATIENT. OXYGEN AND TELE 7 ON, IV INFUSING.
--- NOTE | 2019-01-25 10:07 | NUR ---
DR. ACEVEDO NOTIFIED THAT PATIENT HAS ELEVATED BP AND TEMP.
--- NOTE | 2019-01-25 10:13 | NUR ---
Report recieved from Paulette GONZALEZ. Pt sleeping at this time. His bp is 174/72 and his temp is 99.9, Dr Cruz was notified of this per Paulette GONZALEZ. Verbal order received from Dr Cruz to allow the pt to sleep and not wake him, to include for medications.
--- NOTE | 2019-01-25 10:47 | NUR ---
1025: Pt awoke and he denies any pain or sob. Pt states he needs to use the BR and he was assisted with the urinal and he voided a small amount. The pt had also been incont of urine. The pt was cleaned up and new attends placed. Pt now sitting at the bed side having a sip of coffee. Pt is alert to person not place and time. Pt was unsteady on his feet when he stood to use the urinal and the pt was reminded to always have help when he stands. Pt remains a 1 on 1 for safety reasons.
[2019-01-25] MEDS ORDERED: EQL SENNA-S TA1 EACH PO (10:54)
--- NOTE | 2019-01-25 10:56 | NUR ---
MED REC COMPLETE
--- NOTE | 2019-01-25 11:22 | NUR ---
PT CONTINUES RESTING AT THE BEDSIDE AND HE CONTINUES TO DENIE ANY PROBLMES. PT JUST FINISHED A BREATHING TREATMENET WITH RT.
--- NOTE | 2019-01-25 11:33 | NUR ---
PT BECOMING DROWSY WHILE SITTING UP. PT HELPED BACK TO BED AT THIS TIME.
--- NOTE | 2019-01-25 11:37 | NUR ---
PT SLEEPING AT THIS TIME. PT REMAINS A 1 ON 1 AND THE BED ALARM IS ON AND HIS CALL LIGHT IS IN REACH.
--- NOTE | 2019-01-25 11:40 | NUR ---
DR ACEVEDO TO BEDSIDE CHECKING ON THE PT.
[2019-01-25] MEDS ORDERED: FLOMAX0.4 MG PO (11:47)
[2019-01-25] MEDS ORDERED: METOPROLOL SUCC50 MG PO (11:48)
[2019-01-25] MEDS ORDERED: TRAZODONE HCL50 MG PO (11:49)
[2019-01-25] MEDS ORDERED: DULOXETINE HCL60 MG PO (11:49)
[2019-01-25] MEDS ORDERED: QUETIAPINE FUM100 MG PO (11:50)
[2019-01-25] MEDS ORDERED: IPRAT-ALBUT 0.5-3 ML INH (11:51)
[2019-01-25] MEDS ORDERED: FERROUS GLUCON324 M2 PO (11:51)
--- NOTE | 2019-01-25 12:31 | NUR ---
PT'S DAUGHTER (ALESSANDRO) ARRIVED TO TAKE THE PT HOME. PT'S IV WAS DC'D TIP INTACT. RX TO THE ROOM TO SPEAK WITH THE PT'S DAUGHTER AT THIS TIME.
--- NOTE | 2019-01-25 13:09 | NUR ---
1255: PT DC'D TO HOME WITH HIS DAUGHTER. VITAL SIGNS WERE NOT CHECKED ORDERED NOT TO RECHECK BY DR ACEVEDO. PT WAS WHEELCHAIRED TO THE CAR WITH O2 AT 4L AND THE PT WAS PLACED ON HIS OWN O2 IN THE CAR. THE PT'S DAUGHTER STATES SHE WILL BE FINE GETTING THE PT INTO HIS HOME THERE ARE SEVERAL FAMILY MEMEBERS AT HOME TO HELP.
== END 2019-01-25 12:55 | disposition home or self-care (01) ==
LOC: ED 09:19 → MS 09:20
PROVIDERS: ADMIT Internal Medicine
DX: E86.0 Dehydration (principal); G93.41 Metabolic encephalopathy; I48.0 Paroxysmal atrial fibrillation; M48.00 Spinal stenosis, site unspecified; R10.9 Unspecified abdominal pain; G89.29 Other chronic pain; N40.0 Benign prostatic hyperplasia without lower urinary tract symptoms; F32.9 Major depressive disorder, single episode, unspecified; F03.91 Unspecified dementia, unspecified severity, with behavioral disturbance; G47.00 Insomnia, unspecified; E78.5 Hyperlipidemia, unspecified; K21.9 Gastro-esophageal reflux disease without esophagitis; J44.9 Chronic obstructive pulmonary disease, unspecified; J96.11 Chronic respiratory failure with hypoxia; Z99.81 Dependence on supplemental oxygen; Z79.82 Long term (current) use of aspirin; Z79.51 Long term (current) use of inhaled steroids; Z79.899 Other long term (current) drug therapy; Z88.8 Allergy status to other drugs, medicaments and biological substances
CPT/HCPCS: 70450; 71045; 80053; 81001; 84484; 85025; 93005; 93010; 94640; 94667; 94668; 96361; 96372; 99285-25; G0378; J1630; J1650; J7120

== ENCOUNTER 2019-09-19 14:39 | Emergency (ER) | payer MEDICARE, OTHER ==
[~2019-09-19] VITALS: Ht 180.3 cm; Wt 66.5 kg
[~2019-09-19 14:39] MED LIST changes: +DULOXETINE HCL60 MG PO; +EQL SENNA-S TA1 EACH PO; +FERROUS GLUCON324 M2 PO; +IPRAT-ALBUT 0.5-3 ML INH; +METOPROLOL SUCC50 MG PO
--- OUTSIDE RECORDS SUMMARY | 2019-09-19 14:42 | XMS ---
PreManage Notification: MADISYN SALMERON Security Shoder Filler Events No recent Security Events currently on file CRITERIA MET - [facility] - Has Care Guidelines CARE PROVIDERS Sarmad Fournier Internal Medicine: Pulmonary Disease 08/18/2018-Current PHONE: Unknown Cass Rodriguez Crude Unit Operator/Traffic Rate Clerk 11/30/2018-Current PHONE: [phone] Cass Rodriguez Primary Care 11/30/2018-Current PHONE: [phone] Quique has no Care Guidelines for this patient. Care History Medical/Surgical 11/15/2018 [facility] - PATIENT WAS TRANSFERRED TO [facility]. PLEASE CONTACT [facility] IF PATIENT IS SEEN IN THE ED- [phone]. - PATIENT HAS AN APT WITH PCP ON 11/26/18 @ 11:00AM. 11/01/2018 [facility] - [facility] AND THE [facility] ARE NOT ABLE TO WORK WITH PATIENT. - DUE TO MULTIPLE APD REFERRALS MADE ON PATIENT- PATIENT DAUGHTER IS NO LONGER ALLOWING HELP/SERVICES FROM THE CLINIC AND CH[facility]. - IF PATIENT IS SEEN IN THE ED PLEASE CONTACT [facility] IF THERE IS ANY CONCERNS WITH NEGLECT AND FOLLOW UP CARE TO MEDICAL NEEDS. 09/04/2018 [facility] - PATIENT IS CURRENTLY ON HOME HEALTH SERVICES. IF PATIENT IS SEEN IN THE ED PLEASE CONTACT HOME HEALTH AIR VALVE MECHANIC RN, AND OR HOME HEALTH OFFICE DURING WORKING HOURS. - [phone]. IF NOT ABLE TO CONTACT AT THE NUMBER LISTED. PLEASE CALL [phone] AND REQUEST FOR THE AIR VALVE MECHANIC RN FOR HOME HEALTH. [place] VISIT COUNT (12 MO.) 5 [facility] TOTAL 5 NOTE: Visits indicate total known visits. ED/C VISIT TRACKING (12 MO.) 09/19/2019 14:40 [facility] TYPE: Emergency COMPLAINT: - FALL, INJ 01/23/2019 09:19 [facility] TYPE: Emergency COMPLAINT: - WEAKNESS 01/14/2019 16:14 [facility] TYPE: Emergency COMPLAINT: - ABD PAIN DIAGNOSES: - jail (current) use of aspirin - 1 Type 2 diabetes mellitus without complications - jail (current) use of oral hypoglycemic drugs - Generalized abdominal pain - Unspecified dementia without behavioral disturbance - Heart failure, unspecified - Allergy status to oth drug/meds/biol subst status - Other branch examiner (current) drug therapy - Chronic obstructive pulmonary disease, unspecified 11/25/2018 10:44 [facility] TYPE: Emergency COMPLAINT: - SOB/WEAKNESS 09/29/2018 11:56 [facility] TYPE: Emergency COMPLAINT: - MEDICATION REFILL DIAGNOSES: - Nonspecific low blood-pressure reading - chip machine operator (current) use of aspirin - Heart failure, unspecified - Unspecified dementia without behavioral disturbance - Syncope and collapse - Personal history of nicotine dependence - Anemia, unspecified - Encounter for issue of repeat prescription - Chronic obstructive pulmonary disease, unspecified - 1 Type 2 diabetes mellitus without complications - Other branch examiner (current) drug therapy INPATIENT VISIT TRACKING (12 MO.) 01/23/2019 09:20 [facility] TYPE: Observation COMPLAINT: - ENCEPHALOPATHY DIAGNOSES: - chip machine operator (current) use of inhaled steroids - Insomnia, unspecified - Metabolic encephalopathy - Chronic obstructive pulmonary disease, unspecified - jail (current) use of aspirin - Other fci (current) drug therapy - Gastro-esophageal reflux disease without esophagitis - Chronic respiratory failure with hypoxia - Benign prostatic hyperplasia without lower urinry tract symp - Hyperlipidemia, unspecified - Dependence on supplemental oxygen - Other chronic pain - Unspecified dementia with behavioral disturbance - Dehydration - Allergy status to oth drug/meds/biol subst status - Major depressive disorder, single episode, unspecified - Spinal stenosis, site unspecified - Altered mental status, unspecified - Unspecified abdominal pain - Paroxysmal atrial fibrillation 11/25/2018 15:[address] [facility] TYPE: Medical Surgical COMPLAINT: - METABOLIC ENCEPHALOPATHY DIAGNOSES: - Retention of urine, unspecified - Unspecified dementia without behavioral disturbance - Acute kidney failure, unspecified - Hypertensive heart disease with heart failure - Unsp Escherichia coli as the cause of diseases classd elswhr - Urinary tract infection, site not specified - Chronic obstructive pulmonary disease, unspecified - Adverse effect of antiepileptic and sed-hypntc drugs, init - Heart failure, unspecified - jail (current) use of oral hypoglycemic drugs - 1 Type 2 diabetes mellitus without complications - Moderate protein-calorie malnutrition - Toxic encephalopathy - jail (current) use of aspirin - Athscl heart disease of [place] coronary artery w/o ang pctrs [email or web address]
[2019-09-19] MEDS ORDERED: FERROUS GLUCON324 M1 (16:36)
== END 2019-09-19 19:25 | disposition home or self-care (01) ==
LOC: ED 14:39
DX: S09.90XA Unspecified injury of head, initial encounter (principal); S22.089A Unspecified fracture of T11-T12 vertebra, initial encounter for closed fracture; J44.9 Chronic obstructive pulmonary disease, unspecified; E11.9 Type 2 diabetes mellitus without complications; I11.0 Hypertensive heart disease with heart failure; I50.9 Heart failure, unspecified; W01.198A Fall on same level from slipping, tripping and stumbling with subsequent striking against other object, initial encounter
CPT/HCPCS: 70450; 74177; 80053; 85025; 99284-25; J2270; Q9967

== ENCOUNTER 2019-09-25 17:19 | Emergency (ER) | payer MEDICARE, OTHER ==
[~2019-09-25] VITALS: Ht 180.3 cm; Wt 69.4 kg
[~2019-09-25 17:19] MED LIST changes: +FERROUS GLUCON324 M1
--- OUTSIDE RECORDS SUMMARY | 2019-09-25 17:22 | XMS ---
PreManage Notification: MADISYN SALMERON Security Environmental Specialist Events No recent Security Events currently on file CRITERIA MET - [facility] - Has Care Guidelines - [facility] - 2 Visits in 30 Days CARE PROVIDERS Sarmad Fournier Internal Medicine: Pulmonary Disease 08/18/2018-Current PHONE: Unknown Cass Rodriguez Ethics Instructor/[place] Utility Worker 11/30/2018-Current PHONE: [phone] CYNTHIA ACEVEDO Internal Medicine 09/20/2019-Current KAHLIL PHONE: [phone] Cass Rodriguez Primary Care 11/30/2018-Current PHONE: [phone] Quique has no Care Guidelines for this patient. Care History Medical/Surgical 11/15/2018 [facility] - PATIENT WAS TRANSFERRED TO [facility]. PLEASE CONTACT [facility] IF PATIENT IS SEEN IN THE ED- [phone]. - PATIENT HAS AN APT WITH PCP ON 11/26/18 @ 11:00AM. 11/01/2018 [facility] - [facility] AND THE [facility]OSP[facility] ARE NOT ABLE TO WORK WITH PATIENT. - DUE TO MULTIPLE APD REFERRALS MADE ON PATIENT- PATIENT DAUGHTER IS NO LONGER ALLOWING HELP/SERVICES FROM THE CLINIC AND [facility]. - IF PATIENT IS SEEN IN THE ED PLEASE CONTACT [facility] IF THERE IS ANY CONCERNS WITH NEGLECT AND FOLLOW UP CARE TO MEDICAL NEEDS. 09/04/2018 [facility] - PATIENT IS CURRENTLY ON HOME HEALTH SERVICES. IF PATIENT IS SEEN IN THE ED PLEASE CONTACT [facility] OPERATIONS AND MAINTENANCE MANAGER RN, AND OR HOME HEALTH OFFICE DURING WORKING HOURS. - [phone]. IF NOT ABLE TO CONTACT AT THE NUMBER LISTED. PLEASE CALL [phone] AND REQUEST FOR THE OPERATIONS AND MAINTENANCE MANAGER RN FOR HOME HEALTH. E.D. VISIT COUNT (12 MO.) 6 [facility]. TOTAL 6 NOTE: Visits indicate total known visits. ED/UCC VISIT TRACKING (12 MO.) 09/25/2019 17:19 [facility] TYPE: Emergency COMPLAINT: - TESTICULAR PROBLEM 09/19/2019 14:40 [facility] TYPE: Emergency COMPLAINT: - FALL, INJ DIAGNOSES: - Heart failure, unspecified - Nausea with vomiting, unspecified - Unsp fracture of T11-T12 vertebra, init for clos fx - Chronic obstructive pulmonary disease, unspecified - Hypertensive heart disease with heart failure - Fall same lev from slip/trip w strike agnst oth object, init - 1 Type 2 diabetes mellitus without complications - Unspecified injury of head, initial encounter 01/23/2019 09:19 [facility] TYPE: Emergency COMPLAINT: - WEAKNESS 01/14/2019 16:14 [facility] TYPE: Emergency COMPLAINT: - ABD PAIN DIAGNOSES: - ferry terminal agent (current) use of aspirin - 1 Type 2 diabetes mellitus without complications - assisted (current) use of oral hypoglycemic drugs - Generalized abdominal pain - Unspecified dementia without behavioral disturbance - Heart failure, unspecified - Allergy status to oth drug/meds/biol subst status - Other regional intermodal truck driver (current) drug therapy - Chronic obstructive pulmonary disease, unspecified 11/25/2018 10:44 [facility] TYPE: Emergency COMPLAINT: - SOB/WEAKNESS 09/29/2018 11:56 [facility] TYPE: Emergency COMPLAINT: - MEDICATION REFILL DIAGNOSES: - Nonspecific low blood-pressure reading - assisted (current) use of aspirin - Heart failure, unspecified - Unspecified dementia without behavioral disturbance - Syncope and collapse - Personal history of nicotine dependence - Anemia, unspecified - Encounter for issue of repeat prescription - Chronic obstructive pulmonary disease, unspecified - 1 Type 2 diabetes mellitus without complications - Other alf (current) drug therapy INPATIENT VISIT TRACKING (12 MO.) 01/23/2019 09:20 [facility] TYPE: Observation COMPLAINT: - ENCEPHALOPATHY DIAGNOSES: - ferry terminal agent (current) use of inhaled steroids - Insomnia, unspecified - Metabolic encephalopathy - Chronic obstructive pulmonary disease, unspecified - assisted (current) use of aspirin - Other regional intermodal truck driver (current) drug therapy - Gastro-esophageal reflux disease [...] pain - Paroxysmal atrial fibrillation 11/25/2018 15:46 [facility] TYPE: Medical [...] drugs, init - Heart failure, unspecified - ferry terminal agent (current) use of oral hypoglycemic drugs - 1 Type 2 diabetes mellitus without complications - Moderate protein-calorie malnutrition - Toxic encephalopathy - ferry terminal agent (current) use of aspirin - Athscl heart disease of [place] coronary artery w/o ang pctrs [id number]
== END 2019-09-25 22:11 | disposition home or self-care (01) ==
LOC: ED 17:19
DX: K40.90 Unilateral inguinal hernia, without obstruction or gangrene, not specified as recurrent (principal); J44.9 Chronic obstructive pulmonary disease, unspecified; I11.0 Hypertensive heart disease with heart failure; I50.9 Heart failure, unspecified; E11.9 Type 2 diabetes mellitus without complications; F03.90 Unspecified dementia, unspecified severity, without behavioral disturbance, psychotic disturbance, mood disturbance, and anxiety; Z87.891 Personal history of nicotine dependence; Z88.8 Allergy status to other drugs, medicaments and biological substances; Z79.899 Other long term (current) drug therapy; Z79.82 Long term (current) use of aspirin
CPT/HCPCS: 74177; 80053; 81001; 83605; 85025; 99284-25; J3010; J7040

== ENCOUNTER 2020-01-03 18:36 | Observation (INO) | payer MEDICARE, OTHER ==
[~2020-01-03] VITALS: Ht 180.3 cm; Wt 63.5 kg
--- OUTSIDE RECORDS SUMMARY | 2020-01-03 18:40 | XMS ---
PreManage Notification: MADISYN SALMERON Security Yarn Worker Events No recent Security Events currently on file CRITERIA MET - [facility] - [facility] Guidelines - History of Sepsis Dx CARE PROVIDERS Sarmad Fournier Internal Medicine: Pulmonary Disease 08/18/2018-Current PHONE: Unknown [facility] 09/20/2019-Current KAHLIL PHONE: [phone] Adriane Del Rio Molding Utility Worker/Parcel Post Weigher 11/30/2018-Current PHONE: [phone] Adriane Del Rio Primary Care 11/30/2018-Current PHONE: [phone] Quique has no Care Guidelines for this patient. Care History Medical/Surgical 11/15/2018 [facility] - PATIENT WAS TRANSFERRED TO [facility]. PLEASE CONTACT [facility] IF PATIENT IS SEEN IN THE ED- [phone]. - PATIENT HAS AN APT WITH PCP ON 11/26/18 @ 11:00AM. 11/01/2018 [facility] - [facility] AND [facility] ARE NOT ABLE TO WORK WITH PATIENT. - DUE TO MULTIPLE APD REFERRALS MADE ON PATIENT- PATIENT DAUGHTER IS NO LONGER ALLOWING HELP/SERVICES FROM THE CLINIC AND [facility]. - IF PATIENT IS SEEN IN THE ED PLEASE CONTACT [facility] IF THERE IS ANY CONCERNS WITH NEGLECT AND FOLLOW UP CARE TO MEDICAL NEEDS. 09/04/2018 [facility] - PATIENT IS CURRENTLY ON HOME HEALTH SERVICES. IF PATIENT IS SEEN IN THE ED PLEASE CONTACT [facility] EDGE DRUMMER RN, AND OR HOME HEALTH OFFICE DURING WORKING HOURS. - [phone]. IF NOT ABLE TO CONTACT AT THE NUMBER LISTED. PLEASE CALL AND REQUEST FOR THE EDGE DRUMMER RN FOR HOME HEALTH. E.D. VISIT COUNT (12 MO.) 5 [facility]. TOTAL 5 NOTE: Visits indicate total known visits. ED/UCC VISIT TRACKING (12 MO.) 01/03/2020 18:37 [facility] TYPE: Emergency COMPLAINT: - SOB 09/25/2019 17:19 [facility] TYPE: Emergency COMPLAINT: - TESTICULAR PROBLEM DIAGNOSES: - Personal history of nicotine dependence - Unspecified dementia without behavioral disturbance - Unil inguinal hernia, w/o obst or gangr, not spcf as recur - Hypertensive heart disease with heart failure - 1 Type 2 diabetes mellitus without complications - tank terminal gauger (current) use of aspirin - Heart failure, unspecified - Chronic obstructive pulmonary disease, unspecified - Allergy status to oth drug/meds/biol subst status - Other local company intermodal truck driver (current) drug therapy - Nausea with vomiting, unspecified 09/19/2019 14:40 [facility] TYPE: Emergency COMPLAINT: - FALL, INJ DIAGNOSES: - Heart failure, unspecified - Nausea with vomiting, unspecified - Unsp fracture of T11-T12 vertebra, init for clos fx - Chronic obstructive pulmonary disease, unspecified - Hypertensive heart disease with heart failure - Fall same lev from slip/trip w strike agn ot object, init - 1 Type 2 diabetes mellitus without complications - Unspecified injury of head, initial encounter 01/23/2019 09:19 [facility] TYPE: Emergency COMPLAINT: - WEAKNESS 01/14/2019 16:14 [facility] TYPE: Emergency COMPLAINT: - ABD PAIN DIAGNOSES: - tank terminal gauger (current) use of aspirin - 1 Type 2 diabetes mellitus without complications - tank terminal gauger (current) use of oral hypoglycemic drugs - Generalized abdominal pain - Unspecified dementia without behavioral disturbance - Heart failure, unspecified - Allergy status to oth drug/meds/biol subst status - Other fdc (current) drug therapy - Chronic obstructive pulmonary disease, unspecified INPATIENT VISIT TRACKING (12 MO.) 01/23/2019 09:[address] [facility] TYPE: Observation COMPLAINT: - ENCEPHALOPATHY DIAGNOSES: - skilled nursing (current) use of inhaled steroids - Insomnia, unspecified - Metabolic encephalopathy - Chronic obstructive pulmonary disease, unspecified - skilled nursing (current) use of aspirin - Other local company intermodal truck driver (current) drug therapy - [...] Unspecified abdominal pain - Paroxysmal atrial fibrillation [email or web address]
--- NOTE | 2020-01-04 00:15 | NUR ---
PT REPORT RECIEVED FROM IDENTIFICATION AND RECORDS COMMANDER. PT BROUGHT TO CCU VIA STRETCHER ON LICENSED CLINICAL PSYCHOLOGIST, CARDIZEM DRIP INFUSING AT 5 MG/HR. SECOND UNIT OF BLOOD HOOKED UP TO PT RIGHT IV BUT NOT INFUSING. PT RESTLESS, JERKING AROUND IN BED, TALKING NON STOP. DISORIENTED TO DATE, TIME, PLACE. REPORTS 7/10 ABD PAIN AT THIS TIME. PT HAS AUDIBLE EXPRIATORY WHEEZES. OCUGEN SATURATIONS AT 93 PERCENT ON 2 L NC.
--- NOTE | 2020-01-04 00:30 | NUR ---
PT CONTINUES TO MOVE AROUND INS STRETCEHR, WITH QUICK JERKY MOVEMENTS. TALKING NON STOP. ANSWERS QUESTIONS ABOUT PAIN APPROPRIATELY. HEART RATE 80-90 AT THIS TIME. CARDIZEM DRIP TITRATED DOWN TO 2.5 MG/HR AT THIS TIME.
--- NOTE | 2020-01-04 01:02 | NUR ---
CARDIZEM DRIP TURNED OFF AT THIS TIME. PT HEART RATE 85 BPM. PT CONTINUES TO HAVE JERKY MOVEMENTS, AND ONGOING TALKING. BLOOD CONTINUES TO INFUSE AT THIS TIME.
--- NOTE | 2020-01-04 01:43 | NUR ---
2ND UNIT OF BLOOD FINISHED INFUSING. HEART RATE IN THE 80'S AT THIS TIME. PT RESTING IN BED, ATTEMPTING TO CALM MOVEMENTS. ARMS AND LEGS STILL JERKING IN BED. PT REQUIRING FREQUENT REORIENTATION.
--- NOTE | 2020-01-04 02:10 | NUR ---
PT HAD AN INCONTINENT BOWEL MOVEMENT. DEPENDS CHANGED. PT NOW RESTING IN BED. WITH EYES CLOSED ARMS AND LEGS NO LONGER JERKING. EYES CLOSED. BREATHING EVEN AND UNLABORED. VISIBLE FROM NURSES STATION. CALL LIGHT WITHIN REACH. NO FURTHER ASSESSED NEEDS AT THIS TIME.
--- NOTE | 2020-01-04 03:35 | NUR ---
PT RESTING WITH EYES CLOSED, BREATHING EVEN AND UNLABORED RR=15. CALL LIGHT WITHIN REACH. VISIBLE FROM NURSES STATION.
--- NOTE | 2020-01-04 04:35 | NUR ---
ASSESSMENT COMPLETED AT THIS TIME. PT SLEPT THROUGH ASSESSMENT. RESTING ON RIGHT SIDE AT THIS TIME. CALL LIGHT WITHIN REACH. VISIBLE FROM NURSES STATION. NO ASSESSED NEEDS AT THIS TIME.
--- NOTE | 2020-01-04 05:23 | NUR ---
LAB IN TO DRAW BLOOD WELL TOLERATED BY PT.
--- NOTE | 2020-01-04 07:30 | NUR ---
PATIENT RESTING IN BED ON HIS SIDE AT THIS TIME. CLOSE OBSERVATION D/T PATIENT BEING IMPULSIVE AT TIMES. NO OTHER NEEDS AT THIS TIME. WILL CONTINUE TO ENCOURAGE REST AND CLOSELY MONITOR.
--- NOTE | 2020-01-04 07:54 | EKG ---
[facility] [address] [facility] [place] [address] \T\ T wave abnormality, consider inferior ischemia Abnormal ECG When compared with ECG of 23-JAN-2019 09:49, T wave inversion now evident in Inferior leads Confirmed by ANKUR CASTELLON MD ([id number]) on 01/04/2020 7:53:49 AM Electronically Signed By: ANKUR CASTELLON MD 01/04/20 0754 PATIENT NAME: MADISYN SALMERON Electrocardiogram DATE OF : 36 PHYSICIAN: ANKUR CASTELLON MD REPORT #: [id number] REPORT IS CONFIDENTIAL AND NOT TO BE RELEASED WITHOUT AUTHORIZATION
--- NOTE | 2020-01-04 09:30 | NUR ---
PT USED CALL LIGHT SERVERAL TIMES. HE REQUESTED TO USE THE COMODE 2X. PT WAS UNABLE TO HAVE A BM HE REPORTED AB PAIN AND HAVING GAS. 2ND TIME PT HAD A SOLID LG BM WELL TOLERATED. PT REQUESTED CLEAR DIET TRAY WAS ORDERED. PT DIET WAS CHANGED TO A REGULAR AND PT REQUESTED COLD CEREAL. DR. CASTELLON WAS AT THE PT BEDSIDE, INFORMED PT HE WAS GOING TO BE TRANSFORDED TO THE MED/SURG UNIT. PT APPEARED TO BE RESTLESS HE CONTIOUSLY SAT UP IN HIS BED AND LAID BACK DOWN. HE COMPLAINED OF BEING SHORT OF BREATH AT TIMES. NEB TREATMENT GIVEN. VITALS COMPLETED. ASSESSMENT DONE. WILL CONTINUE TO CLOSELY MONITOR.
--- NOTE | 2020-01-04 10:50 | NUR ---
PATIENT UP AND WORKED WITH PHYSICAL THERAPY. PATIENT TOELRATED WELL. PATIENT ENCOURAGED TO TASKE DEEP BREATHS WHILE AMBULATING, REMINDED PATIENT NOT TO TALK SO MUCH WHILKE WORKING SO HER CAN BREATH BETTER. PATIENT IS A VERY TALKATIVE PERSON BASELINE. PATIENT BACK TO BED. WILL CONTINUE TO CLOSELY MONITOR.
--- NOTE | 2020-01-04 11:29 | NUR ---
Spoke with . Memory is poor, is not aware of date or year. Does know his name. Lives in an apartment with his daughter and grandson. Both provide him assistance. Pt states he has a nebulizer and a wc at home. Has a paid state caregiver, but is unsure of hour or who it is. Wants to return home with family on dc.
--- NOTE | 2020-01-04 11:30 | NUR ---
PT ARRIVED FROM CCU VIA BED, PT ALERT AND ORIENTED TO NEW ROOM AND CALL LIGHT. ASSESSMENT COMPLETED AND VS'S TAKEN. PUDDING PROVIDED AND LUNCH ORDERED. BED ALARM ON IVF INFUSING ORDERED.
--- NOTE | 2020-01-04 11:30 | NUR ---
PATIENT REPORT GIVEN TO LISA GONZALEZ ON [facility]. PATIENT TRANSFERED TO ROOM 121 VIA BED. PATIENT TOELRATED WELL AND ORIENTED TO ROOM AND STAFF MEMBERS. NO OTHER QUESTIONS AT THIS TIME. UPDATED LISA CATHETER NEEDS EMPTIED. WILL CALL PATIENTS DAUGHTER AND UPDATE ON TRANSFER PER DAUGHTERS REQUEST.
--- NOTE | 2020-01-04 14:34 | NUR ---
PT C/O MILD NAUSEA AFTER SNACK, ZOFRAN GIVEN, CONT. COLORING.
--- NOTE | 2020-01-04 14:56 | NUR ---
Pt spilt his coffee and plate on the floor. Helped pt clean this up. Pt states "my coffee started to fall and I went to catch it and I accidentaly wacked it off the table". No obvious deformity noted to pt's right hand. h2o and call light in reach. No further needs or concerns voiced.
--- NOTE | 2020-01-04 16:04 | NUR ---
PT RESTING IN SEMIFOWLERS POSITION IN BED ALERT ADN WATCHING TV. CALL LIGHT AND H2O IN REACH. PT STATES HE HAS ALREADY PLACED HIS DINNER ORDER AND DENIES NEEDS OR CONCERNS AT THIS TIME.
--- NOTE | 2020-01-04 17:35 | NUR ---
PT SITTING UP AT SIDE OF BED COLORING. PT APPEARS TO BE IN NO ACUTE DISTRESS ON 3LPNC. CALL LIGHT AND H2O IN REACH.
--- NOTE | 2020-01-04 19:20 | NUR ---
SHIFT REPORT RECEIVED FROM KAITLIN GONZALEZ AT BEDSIDE. PT AWAKE AND RESTING IN BED. IV FLUIDS INFUSING, SITE WNL. HEAT PACK TO CHEST AREA, RECENTLY PROVIDED BY [facility]. CALL LIGHT IN REACH, BED ALARM ON FOR SAFETY.
--- NOTE | 2020-01-04 19:23 | NUR ---
PT HAS BEEN SITTING UP IN BED COLORING FOR THE PAST SEVERAL HOURS. PT NOW REPORTS SHARP STABING PAIN TO LEFT INTERCOSTAL REGION WITH INCRESED PAIN WITH MOVEMENT AND WITH PALPATION TO AREA, PT ALSO REPORTS SIMILAR PAIN TO MID UPPER ABDOMEN. P TNOT DUE FOR PRN PO TYLENOL UNTIL 10PM. WARM PACK APPLIED TO AFFECTED AREA BUT PT STILL REPORTING 10/10 SHARP STABBING PAIN AND IS GRIMMACING, MOANING AND FIDGETING. VS'S STABLE. DR CASTELLON NOTIFIED OF SIGNS AND SYMPTOMS. NEW ORDER RECEIVED FOR PRN PO NORCO 5/325 Q4HRS PAIN. NO FURTHER ORDERS AT THIS TIME. RT IN PROVIDING BREATHING TX. REPORT TO LISA KING.
--- NOTE | 2020-01-04 19:47 | NUR ---
PRN NORCO ADMINISTERED FOR 7/10 GENERALIZED PAIN FROM HIPS TO NECK. PT RESTLESS AND FIGETING IN BED. PT ASKING TO SPEAK WITH DAUGHTER, THIS RN ASSISTED PT WITH CALLING DAUGHTER. NO ADDITIONAL NEEDS. CALL LIGHT IN REACH.
--- NOTE | 2020-01-04 22:15 | NUR ---
ASSESSMENT COMPLETE, SCHEDULED MEDS GIVEN (SEE EMAR). PT CONTINUES TO REPORT 8/10 PAIN. PT RESTING IN BED AND REMAINS FIDGETING. PT LAUGHING AND INTERACTING WITH NURSING STAFF AND COLORING. NO CRYING, MOANING, OR SIGNS OF DISTRESS NOTED. PT A/O TO SELF, PLACE, AND EVENTS. REORIENTED TO DATE. VSS, PT ON TELE #6, SINUS RHYTHM. RATE 80-90'S. IV SITE TO RIGHT FOREARM WNL, BLOOD RETURN NOTED. FLUIDS INFUSING AT 100MLS/HR. SITE TO LEFT FOREARM LEAKING WHEN FLUSHED, SITE DISCONTINUED BY THIS RN. CATHETER TIP INTACT. SITE REINFORCED WITH COBAN AND 2X2 GAUZE. PT DENIES NAUSEA, BT ACTIVE. NO FURTHER NEEDS, CALL LIGHT IN REACH. PT IN VIEW OF NURSE'S STATION.
--- NOTE | 2020-01-05 00:12 | NUR ---
PT AWAKE AND RESTING IN BED. RECENTLY COLORING, BUT APPEARS TO BE WINDING DOWN FOR BED. 2LNC IN PLACE, NO DISTRESS NOTED. TELE#[address], HR 74. SINUS RHYTHM. IV FLUIDS INFUSING AT 100MLS/HR, SITE WNL. CALL LIGHT IN REACH, PT IN VIEW OF NURSE'S STATION.
--- NOTE | 2020-01-05 00:58 | NUR ---
PT SITTING IN BED, ATTEMPTING TO GET OUT OF BED. THIS RN IN ROOM, ATTEMPTED TO REORIENT PT. WHEN ASKED WHERE HE WAS, PT STATES, "I DON'T KNOW". PT IRRITATED, TALKING TO SELF AND SWEARING. PT QUICKLY SETTLED DOWN AND IS NOW RESTING IN BED. PT IN VIEW OF NURSE'S STATION. CALL LIGHT IN REACH.
--- NOTE | 2020-01-05 02:30 | NUR ---
PT RESTING QUIETLY IN BED, EYES CLOSED. IV FLUIDS INFUSING AT 100MLS/HR, SITE WNL. BED ALARM ON. CALL LIGHT IN REACH.
--- NOTE | 2020-01-05 05:11 | NUR ---
PT INITIALLY VERY FIDGETY AT BEGINNING OF SHIFT, PT REASSURED BY DAUGHTER OVER THE PHONE. VSS, PT ON 2LNC. FORGETFUL AND IMPULSIVE AT TIMES, BED ALARM ON FOR SAFETY. ORIENTED PRN. IV FLUIDS INFUSING AT 100MLS/HR, SITE WNL. REGULAR DIET, TOLERATING WELL, NO NAUSEA REPORTED. PT 1-2PA, UNSTABLE ON FEET.
--- NOTE | 2020-01-05 05:47 | NUR ---
ASSESSMENT COMPLETE, NO NEW CHANGES OR CONCERNS. PT RESTING IN BED, 2LNC IN PLACE. TELE#[address], HR 75, SINUS RHYTHM. PT SLEPT THROUGH ASSESSMENT, NO SIGNS OF PAIN OR DISTRESS NOTED. IV FLUIDS INFUSING AT 100MLS/HR, SITE WNL. BED ALARM ON FOR SAFETY. CALL LIGHT IN REACH, PT IN VIEW OF NURSE'S STATION.
--- NOTE | 2020-01-05 06:32 | NUR ---
alejandre care provided as tolerated. vs and i&os complete. nothing further needed at this time.
--- NOTE | 2020-01-05 07:30 | NUR ---
PATIENT SLEEPING. CALL LIGHT WITHIN REACH. NO OTHER NEEDS AT THIS TIME
--- NOTE | 2020-01-05 07:31 | NUR ---
HUNG NEW BAG OF IV FLUID. PT IS RESTING WITH EYES CLOSED, RR IS EVEN AND NONLABORED. CALL LIGHT IS CLOSE AND BED ALARM IS ON.
--- NOTE | 2020-01-05 08:14 | NUR ---
PT SITTING AT THE EDGE OF THE BED, ENSURE GIVEN WITH THIS MEAL ALSO AT THIS TIME. PT SO FAR COOPERATIVE WITH HOSPITAL ROUTINE AND STAFF
--- NOTE | 2020-01-05 08:15 | NUR ---
PATIENT SITTING UP ON THE EDGE OF THE BED TAKING HIS BREAKFAST. CALL LIGHT WITHIN REACH. NO OTHER NEEDS AT THIS TIME
--- NOTE | 2020-01-05 09:19 | NUR ---
PATIENT SITTING UP ON THE EDGE OF THE BED. VITAL SIGNS AND I&O DONE. SETS UP BATHROOM FOR SHOWER. BED ALARM ON. CALL LIGHT WITHIN REACH. NO OTHER NEEDS AT THIS TIME
[2020-01-05] MEDS ORDERED: METOPROLOL SUCC50 MG PO (09:35)
[2020-01-05] MEDS ORDERED: QUETIAPINE FUM100 MG PO (09:37)
--- NOTE | 2020-01-05 10:26 | NUR ---
pt to be discharge to home. pt daughter is aware and will be here in abut a hour. Discharge instruction given to pt, but will also go over them with his daughter due to she and a care providor will come to get him.
--- NOTE | 2020-01-05 10:28 | NUR ---
fo;ey also dc'd this am and pt placed in a pull up with a urinal at the bedside.
--- NOTE | 2020-01-05 10:59 | NUR ---
PT UP TO THE BATHROOM ONE PERSON ASSISTANCE NEEDED, HAD BMA ND VOIDED IN THE BATHROOM. PT FLUSHED BEFORE STAFF COULD SEE
--- NOTE | 2020-01-05 11:36 | NUR ---
FAMILY HERE TO GET PT AT THIS TIME, ALL QUESTION ANSWERED AT THIS TIME. [facility]
== END 2020-01-05 11:35 | disposition home or self-care (01) ==
LOC: ED 18:36 → MS 18:38 → CCU 18:38 → MS 01-04 11:25
PROVIDERS: ADMIT Internal Medicine
DX: K52.9 Noninfective gastroenteritis and colitis, unspecified (principal); D64.9 Anemia, unspecified; E86.0 Dehydration; F03.90 Unspecified dementia, unspecified severity, without behavioral disturbance, psychotic disturbance, mood disturbance, and anxiety; J44.9 Chronic obstructive pulmonary disease, unspecified; F32.9 Major depressive disorder, single episode, unspecified; E11.9 Type 2 diabetes mellitus without complications; I11.0 Hypertensive heart disease with heart failure; R55 Syncope and collapse; R51 Headache; I48.0 Paroxysmal atrial fibrillation; E78.5 Hyperlipidemia, unspecified; Z87.891 Personal history of nicotine dependence; Z88.8 Allergy status to other drugs, medicaments and biological substances; Z79.51 Long term (current) use of inhaled steroids; Z79.899 Other long term (current) drug therapy
CPT/HCPCS: 36415; 36430; 51702; 70450; 71045; 74177; 80048; 80053; 81001; 83540; 83690; 83735; 83880; 84466; 84484; 85025; 85610; 85730; 86850; 86900; 86901; 86920; 93005; 93010; 94640; 94760; 96375; 96376; 97162; 99285-25; G0378; J1170; J2405; J2920; J3480; J7040; P9016; Q9967